=== PATIENT | male | born 1975 | race Caucasian/White ===

== ENCOUNTER 2021-06-16 03:24 | Emergency (ER) | payer OTHER, SELFPAY ==
--- NOTE | ~2021-06-16 | XR_ITS ---
EXAMINATION: XR foot RT min 3V DATE: 06/16/2021 06:20 INDICATION: Right foot injury and pain. TECHNIQUE: 4 views of right foot were obtained. COMPARISON: Right foot radiographs 03/13/2013 FINDINGS: Bone alignment is normal. No fracture. There is mild osteoarthritis of first interphalangea l joint and talonavicular joint. There is an enthesophyte at posterior aspect of calcaneal tuberosity . IMPRESSION: 1. Mild polyarticular osteoarthritis. Reviewed, dictated and finalized at location A. R ANALYST
[2021-06-16 03:26] VITALS: BP 144/94; PULSE 94; RESP 18; TEMP 36.2; O2SAT 100
[2021-06-16 04:48] VITALS: BP 143/73; PULSE 88; RESP 18; TEMP 36.9; O2SAT 95
--- NOTE | 2021-06-16 06:46 | ED.LOWEXIN ---
HPI - Extremity Injury (Lower) General Chief Complaint: Extremity Injury, Lower Stated Complaint: right foot pain Time Seen by Provider: 06/16/21 04:36 Source: patient and RN notes reviewed Mode of arrival: ambulatory Limitations: no limitations History of Present Illness HPI Narrative: This is a 46 year old male who presents for evaluation of right foot pain. He states on Saturday he accidentally stepped wrong. He thinks her hyperextended distal foot. He had only mild discomfort morning. He went to work night and he noticed that pain worsened throughout the night. He also felt like his foot was getting swollen along distal foot and great toe. He has not taken anything for pain. He is describing pain as throbbing. Related Data Allergies Allergy/AdvReac Type Severity Reaction Status Date / Time aspirin Allergy Severe rash Verified 10/06/15 01:03 ampicillin Allergy Mild Verified 10/05/15 22:54 Review of Systems Review of Systems: All systems reviewed & are unremarkable except as noted in HPI and below PMFSH Past Medical History Medical History (Updated 06/16/21 @ 06:55 by Citlalli Dykes MD) Patient denies medical problems Surgical History Surgical History (Updated 06/16/21 @ 06:49 by Citlalli Dykes MD) No pertinent past surgical history Social History Social History (Updated 06/16/21 @ 06:49 by Citlalli Dykes MD) Smoking status: Never smoker Exam Const: General: no acute distress and alert Orientation/consciousness: patient oriented x3 Eyes: EOM: EOMs intact bilaterally Resp: Effort & Inspection: normal respiratory effort Skin: General skin exam: normal color Rashes: no rashes Neuro: General: patient oriented x3, moves all extremities and CN's II-XI intact bilaterally Extrem: Other: right foot- no swelling, no redness, no deformity, no increased warmth, palpable pedal pulses present. possible tenderness at right first mtp Psych: Mental Status: mental status grossly normal Affect: normal affect Course Reevaluation(s) Reevaluation #1: I discussed with patient that xray shows no fracture. I discussed discharge plan and treatment Date: 06/16/21 Time: 06:50 Vital Signs Vital signs: Vital Signs Temperature 97.1 F L 06/16/21 03:26 Pulse Rate 94 06/16/21 03:26 Respiratory Rate 18 06/16/21 03:26 Blood Pressure 144/94 H 06/16/21 03:26 Pulse Oximetry 100 06/16/21 03:26 Temperature 98.4 F 06/16/21 04:48 Pulse Rate 87 06/16/21 07:01 Respiratory Rate 18 06/16/21 07:01 Blood Pressure 127/68 06/16/21 07:01 Pulse Oximetry 98 06/16/21 07:01 MDM - Extremity Injury (Lower) Imaging Data Radiologist's impression: ITS Impressions Foot X-Ray 06/16/21 06:27 IMPRESSION: 1. Mild polyarticular osteoarthritis. Discharge Plan Discharge Clinical Impression: Acute pain of right foot Patient Disposition: Home, Self-Care Condition: Stable Instructions: Antibiotic Form, Foot Sprain (ED) Additional Instructions: Today your xray was negative for fracture. So elevated, ice when possible. Take tylenol for your pain. If pain does not improve within 1 -2 weeks follow up with your primary care provider. Follow-up/Referrals: Zacarias,Sonny Ko MD [Primary Care Provider] - Stand Alone Forms: Work/School Release IP
[2021-06-16 07:01] VITALS: BP 127/68; PULSE 87; RESP 18; O2SAT 98
== END 2021-06-16 07:00 | disposition home or self-care (01) ==
PROVIDERS: Emergency Provider General Practice; PCP Family Medicine
DX: M79.671 Pain in right foot (principal); M19.071 Primary osteoarthritis, right ankle and foot
CPT/HCPCS: 73630; 99283

== ENCOUNTER 2023-01-10 12:17 | Inpatient (IN) | payer OTHER, SELFPAY ==
[2023-01-10] VITALS (7 sets, daily range): BP systolic 119–144; BP diastolic 75–96; PULSE 82–100; RESP 16–18; TEMP 36.3–37.1; O2SAT 97–100; BMI 30.2
--- NOTE | ~2023-01-10 | CT_ITS ---
EXAMINATION: CT abdomen pelvis w con DATE: 01/10/2023 14:03 INDICATION: Lower abdominal pain TECHNIQUE: Computed tomography (CT) of the abdomen and pelvis was performed with 100 mL Omnipaque-350 intravenous contrast. Automated exposure control and iterative reconstruction technique were employe d. The dose-length product was 908.29 mGy-cm. COMPARISON: None FINDINGS: Lung bases are clear. Heart size is normal. No pericardial or pleural effusion. Diffuse hepatic steat osis mild focal sparing along the gallbladder fossa. Gallbladder, spleen, pancreas, bilateral adrenal glands and kidneys are normal. There is asymmetric wall thickening and adjacent inflammatory strandi ng with a few foci of extraluminal gas around the left side of the sigmoid colon likely related to pe rforated diverticulitis. There is also a larger 3.4 x 2.6 x 4.2 cm loculated extraluminal collection of gas within the adjacent sigmoid mesentery. No organized abscess or more remote free intraperitonea l gas. Remainder of the bowels including the appendix are normal. Bladder is normal. No pathologicall y enlarged abdominal or pelvic lymphadenopathy. Mild lumbar dextrocurvature with mild thoracic and mi nimal lumbar spondylosis. Chronic mild L1 compression fracture with 20% left anterior vertebral body height loss. IMPRESSION: 1. Perforated sigmoid diverticulitis 3.4 cm loculated collection of gas in the sigmoid mesentery but no abscess. Reviewed, dictated and finalized at location L.
[2023-01-10 12:57] LABS: Appearance Urine Clear (Clear); Bilirubin Urine Negative (Negative); Blood Urine Negative (Negative); Color Urine Yellow (Yellow); Glucose Urine UA Negative (Negative); Ketones Urine Negative (Negative); Leukocyte Esterase Ur Negative LEU/UL (Negative); Nitrate Urine Negative (Negative); Protein Urine Negative (Negative); Specific Grav Ur 1.008 (1.001-1.035); Urobilinogen Urine 0.2 mg/dL (<2.0); pH Urine 5.5 (5.0-9.0)
[2023-01-10 12:58] LABS: Basophils Absolute Auto 0.1 K/mm3 (0.0-0.1); Basophils Percent Auto 0.7 % (0.2-1.2); Eosinophils Absolute Auto 0.3 K/mm3 (0-0.3); Eosinophils Percent Auto 3.4 % (0-4.4); Hemoglobin 14.2 g/dL (14.0-18.0); Immature Granulocyte Absolute 0.04 K/mm3 (0.00-0.031); Immature Granulocyte Percent A 0.4 % (0-0.5); Lymphocytes Absolute Auto 2.91 K/mm3 (0.9-3.2); Lymphocytes Percent Auto 30.4 % (18.3-44.2); Mean Corpuscular HGB Conc 31.6 g/dl (32-36); Mean Corpuscular Hemoglobin 25.9 pg (26-34); Mean Platelet Volume 9.6 fl (7.4-10.4); Monocytes Absolute Auto 0.6 K/mm3 (0.1-0.6); Monocytes Percent Auto 6.7 % (2.6-8.5); Neutrophils Absolute Auto 5.6 K/mm3 (1.3-6.7); Neutrophils Percent Auto 58.4 % (45.5-73.1); Platelet Count Result 310 k/mm3 (150-375); Red Blood Count 5.49 M/mm3 (4.6-6.20); White Blood Count 9.6 K/mm3 (4.5-10.0)
[2023-01-10 13:00] LABS: Add Urine Microscopic? NO
[2023-01-10] MEDS: SODIUM CHLORIDE 0.9% IV 1,000 ML 999 ML IV CONT (13:06)
[2023-01-10 13:10] LABS: Alanine Aminotransferase 29 U/L (6-50); Albumin Level 4.7 g/dL (3.5-5.1); Alkaline Phosphatase 76 U/L (38-126); Anion Gap 10 mmol/L (8-16); Aspartate Amino Transferase 28 U/L (17-59); Bilirubin,Total 0.6 mg/dL (0.2-1.3); Blood Urea Nitrogen 9 mg/dL (9-20); Calcium 9.5 mg/dL (8.4-10.2); Carbon Dioxide 26 mmol/L (22-30); Chloride 104 mmol/L (98-107); Estimated CRCL calculation 124 ml/min; Estimated Glomerular Filt Rate > 60; Glucose 113 mg/dL (65-110); Lipase 98 U/L (23-300); Potassium 3.6 mmol/L (3.4-5.0); Sodium 140 mmol/L (137-145)
--- NOTE | 2023-01-10 13:26 | ED.RECABL ---
HPI - Recheck/Abnormal Lab/Rx General Chief Complaint: Recheck/Abnormal Lab/Rx Stated Complaint: ABN labs Time Seen by Provider: 01/10/23 12:47 Source: patient, RN notes reviewed and old records reviewed Mode of arrival: ambulatory Limitations: no limitations History of Present Illness HPI narrative: This is a 47 year old male who presents for evaluation of an abnormal CT scan. Patient states he developed lower abdominal pain, nausea, vomiting and constipation 4 weeks ago . HE thought he had a stomach bug but he continued to have lower abdominal. He had nausea, vomiting and lower abdominal pain for first 2 weeks. He was placed on antibiotics and completed those 1.5- 2 weeks ago. HE still had lower abdominal discomfort so he had outpatient CT abdomen and pelvis today. He states this CT was done with oral contrast but no IV contrast. He rates his pain as 3/10. He was told his CT reports possible abnormality to appendix and diverticulitis. Related Data Home Medications Medication Instructions Recorded Confirmed acetaminophen 500 mg tablet 1,000 mg PO Q6H PRN Pain 01/10/23 01/10/23 Allergies Allergy/AdvReac Type Severity Reaction Status Date / Time aspirin Allergy Severe rash Verified 01/10/23 12:23 ampicillin Allergy Mild Unknown Verified 01/10/23 12:23 latex Allergy Rash Verified 01/10/23 17:44 Latex, Natural Rubber Allergy Rash Verified 01/10/23 17:44 Review of Systems Review of Systems: All systems reviewed & are unremarkable except as noted in HPI and below ROS unobtainable: No unobtainable due to mental status Constitutional: Constitutional: Reports fever(s) and Denies weakness Cardiovascular: Cardiovascular: Denies syncope, Denies rapid heart rate, Denies irregular heart rhythm, Denies leg edema and Denies dyspnea Respiratory: Respiratory: Denies chest congestion, Denies hemoptysis, Denies excessive phlegm production and Denies dyspnea Gastrointestinal: Gastrointestinal: Reports abdominal pain, Denies hematochezia, Denies diarrhea, Reports nausea and Reports vomiting Genitourinary: Genitourinary: Denies hematuria, Denies dysuria, Denies penile discharge and Denies testicular pain Musculoskeletal: Musculoskeletal: Denies joint swelling, Denies loss of height and Denies muscle weakness Neurologic: Denies syncope, Denies focal weakness and Denies weakness PMFSH Past Medical History Medical History Patient denies medical problems Surgical History Surgical History No pertinent past surgical history Social History Social History Smoking status: Never smoker Alcohol intake: never Substance use: never Lack of Transportation: No Lack of Food: Never True Current Housing: I Have Housing Concerned About Future Housing: No Difficulty Paying Gas/Electric Bills: No Difficulty Paying for Meds: No Currently Unemployed: No Education: Associate Degree Difficulty w/ Childcare or Family Care: No Spiritual care concerns: No Exam Const: General: no acute distress Nutritional Appearance: well nourished Orientation/consciousness: patient oriented x3 HENMT: Head: normal to inspection Eyes: Pupils: Equal, round and reactive pupils present EOM: EOMs intact bilaterally Chest: Chest palpation & inspection: normal inspection of the chest Resp: Effort & Inspection: normal respiratory effort Auscultation: clear to auscultation bilaterally Cardio: Rate: regular rate Rhythm: regular rhythm Heart sounds: no murmurs GI: GI Palp: Yes Soft to palpation, Yes Tenderness to palpation present (GI) (bilateral lower abdomen), No Guarding due to palpation present (GI) and No Rigid due to palpation Auscultation: normal bowel sounds Neuro: General: patient oriented x3, moves all extremities and CN's II-XI intact bilaterally Extrem: General:
[2023-01-10] MEDS: metroNIDAZOLE 500 MG/ISO 100ML 500 MG/100 ML BAG 100 MG IVPB ×2 (14:43→22:25)
[2023-01-10] MEDS: SODIUM CHLORIDE 0.9% IV 1,000 ML 125 ML IV CONT (16:04)
--- NOTE | 2023-01-10 17:09 | PM.CNGS ---
Assessment and Plan Assessment and plan (1) Diverticulitis of intestine with perforation without abscess or bleeding: Qualifiers: Diverticulitis site: large intestine Qualified Code(s): K57.20 - Diverticulitis of large intestine with perforation and abscess without bleeding Code(s): K57.80 - Diverticulitis of intestine, part unspecified, with perforation and abscess without bleeding Status: Acute Assessment and Plan: Persistent diverticulitis despite outpatient oral antibiotic therapy. No abscess seen but has a 3.4 cm extraluminal collection of air in the mesentery as well as some smaller pockets of free air. Agree with inpatient admission and IV antibiotics with clear liquids and analgesics as needed. Will follow serial exam, labs but hopefully patient will respond to intensive medical therapy. I did explain to him the nature of diverticulitis and that we were treating an intra-abdominal infection caused by diverticular perforation. I also explained that while this does typically respond to antibiotic therapy and limited oral intake, sometimes it does not respond and in fact gets worse. Sometimes surgery is required in the acute inflammatory phase. I explained also that should surgery be required, it often results in a colostomy. This colostomy would require a 2nd operation to restore intestinal continuity. Thank you for asking us to see this patient in consultation. Will follow along with you. History of Present Illness Consult details Consult date: 01/11/23 Reason for consult: abdominal pain Requesting physician: Citlalli Dykes MD Narrative: Patient is a 47-year-old man who has had abdominal pain for about a month. This is primarily in the lower abdomen and was associated with some nausea vomiting and constipation. He was started on ciprofloxacin and Bentyl by his primary care physician after about a week of this and completed a 10 day course of oral antibiotics. The pain, while it has improved, has not gone away. He came to the emergency room today after having an outpatient CT scan of the abdomen pelvis which showed diverticulitis with a few pockets of free intraperitoneal air and a fairly sizable pocket of air in the sigmoid colon mesentery. His white blood cell count is normal and he has not had fever. He is admitted now for IV antibiotic therapy and I was asked to see him in consultation. He has never had a colonoscopy. He has never had diverticulitis prior to this episode. Review of Systems Review of Systems: All systems reviewed & are unremarkable except as noted in HPI and below (HPI and those items noted below) Constitutional: Constitutional: Denies chills and Denies fever(s) Cardiovascular: Cardiovascular: Denies chest pain, Denies diaphoresis, Denies dyspnea and Denies paroxysmal nocturnal dyspnea Respiratory: Respiratory: Denies chest congestion, Denies cough and Denies dyspnea Integumentary/Breasts: Skin/Breast: Denies lesions and Denies rash PMFSH Past Medical History Medical History Patient denies medical problems Surgical History Surgical History (Updated 01/11/23 @ 00:44 by Shelley Johnson NP) H/O arthroscopic knee surgery H/O arthroscopy of shoulder Bilateral Family History Family History (Updated 01/11/23 @ 00:45 by Shelley Johnson NP) Unknown No problems noted. Social History Social History (Updated 01/11/23 @ 00:45 by Shelley Johnson NP) Social History: The patient is single and has never been . He has no children. 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 Lifelong nonsmoker. Denies any alcohol marijuana illicit drugs Code status full code Smoking status: Never smoker Alcohol intake: never Substance use: never Lack of Transportation: No Lack of Food: Never True Current Housing: I Have Housing Concerned About Future Housing: No Difficulty Paying Gas/Electric Bills: No Di
--- NOTE | 2023-01-10 17:10 | PM.IMHP ---
H&P: HPI History of Present Illness Date/Time: 01/10/23 17:10 Chief Complaint: Abnormal CT scan. Narrative: This is a 47-year-old male patient who has no prior medical history. The patient stated that he had lower abdominal pain approximately 4 weeks ago. Patient stated that he had abdominal pain nausea vomiting constipation that started 4 weeks ago. The patient that that he had gastroenteritis and he was prescribed Cipro. The patient stated that he took the medication was feeling much better. Patient stated complete all of his antibiotics approximately 2 weeks ago. The patient was not able to see his primary care doctor because she was on vacation at the time. The patient had an outpatient CT of the abdomen and pelvis today and the patient was stated that it was abnormal when he needed to come to the emergency room. His white count is normal.Abdominal pelvis CT was read as the followingPerforated sigmoid diverticulitis 3.4 cm loculated collection of gas in the sigmoid mesentery but no abscess. Surgery has been consulted. The patient was started on Rocephin and Flagyl. He was given IV fluids. The patient is tolerating clear liquid diet well. The patient being admitted for observation on the date of service of 01/10/2023. Review of Systems Review of Systems: All systems reviewed & are unremarkable except as noted in HPI and below Constitutional: Constitutional: Reports as per HPI and Reports no additional constitutional complaints Eyes: Eyes: Reports as per HPI and Reports no additional eye complaints ENT: Reports system reviewed and no additional complaints, except as documented and Reports Normal hearing present Cardiovascular: Cardiovascular: Reports no additional cardiovascular complaints Respiratory: Respiratory: Reports no additional respiratory complaints and Reports no additional respiratory complaints Gastrointestinal: Gastrointestinal: Reports as per HPI and Reports no additional gastrointestinal complaints Musculoskeletal: Musculoskeletal: Reports no additional musculoskeletal complaints Integumentary/Breasts: Skin/Breast: Reports system reviewed and no additional complaints, except as docu and Reports as per HPI Neurologic: Reports system reviewed and no additional complaints, except as documented, Reports as per HPI and Reports Normal hearing present Psychiatric: Psychiatric: Reports no additional psychiatric complaints and Reports as per HPI Endocrine: Endocrine: Reports no additional endocrine complaints Hematologic/Lymphatic: Hematologic/Lymphatic: Reports no additional hematologic/lymphatic complaints Allergic/Immunologic: Allergic/Immunologic: Reports no additional allergic/immunologic complaints PMFSH Past Medical History Medical History Patient denies medical problems Surgical History Surgical History (Updated 01/11/23 @ 00:44 by Shelley Johnson NP) H/O arthroscopic knee surgery H/O arthroscopy of shoulder Bilateral Family History Family History (Updated 01/11/23 @ 00:45 by Shelley Johnson NP) Unknown No problems noted. Social History Social History (Updated 01/11/23 @ 00:45 by Shelley Johnson NP) Social History: The patient is single and has never been . He has no children. 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 Lifelong nonsmoker. Denies any alcohol marijuana illicit drugs Code status full code Smoking status: Never smoker Alcohol intake: never Substance use: never Lack of Transportation: No Lack of Food: Never True Current Housing: I Have Housing Concerned About Future Housing: No Difficulty Paying Gas/Electric Bills: No Difficulty Paying for Meds: No Currently Unemployed: No Education: Associate Degree Difficulty w/ Childcare or Family Care: No Spiritual care concerns: No Meds Home Medications and Allergies Home Medications Medication Instructions Recorded Confir
[2023-01-11] MEDS: SODIUM CHLORIDE 0.9% IV 1,000 ML 125 ML IV CONT ×3 (01:06→15:22)
[2023-01-11 03:20] LABS: Basophils Absolute Auto 0.1 K/mm3 (0.0-0.1); Basophils Percent Auto 0.5 % (0.2-1.2); Eosinophils Absolute Auto 0.2 K/mm3 (0-0.3); Eosinophils Percent Auto 1.7 % (0-4.4); Hematocrit 41.8 % (42.0-52.0); Hemoglobin 13.3 g/dL (14.0-18.0); Immature Granulocyte Absolute 0.06 K/mm3 (0.00-0.031); Immature Granulocyte Percent A 0.5 % (0-0.5); Lymphocytes Absolute Auto 2.27 K/mm3 (0.9-3.2); Lymphocytes Percent Auto 20.6 % (18.3-44.2); Mean Corpuscular HGB Conc 31.8 g/dl (32-36); Mean Corpuscular Hemoglobin 26.1 pg (26-34); Mean Corpuscular Volume 82.1 fl (80-100); Mean Platelet Volume 9.4 fl (7.4-10.4); Monocytes Absolute Auto 0.7 K/mm3 (0.1-0.6); Monocytes Percent Auto 6.3 % (2.6-8.5); Neutrophils Absolute Auto 7.8 K/mm3 (1.3-6.7); Neutrophils Percent Auto 70.4 % (45.5-73.1); Platelet Count Result 265 k/mm3 (150-375); Red Blood Count 5.09 M/mm3 (4.6-6.20); Red Cell Distribution Width 13.8 % (11.5-14.5)
[2023-01-11 03:40] LABS: Alanine Aminotransferase 25 U/L (6-50); Albumin Level 4.1 g/dL (3.5-5.1); Alkaline Phosphatase 66 U/L (38-126); Anion Gap 9 mmol/L (8-16); Aspartate Amino Transferase 24 U/L (17-59); Bilirubin,Total 0.6 mg/dL (0.2-1.3); Blood Urea Nitrogen 5 mg/dL (9-20); Calcium 9.1 mg/dL (8.4-10.2); Carbon Dioxide 27 mmol/L (22-30); Chloride 103 mmol/L (98-107); Estimated CRCL calculation 138 ml/min; Estimated Glomerular Filt Rate > 60; Glucose 91 mg/dL (65-110); Potassium 3.6 mmol/L (3.4-5.0); Sodium 139 mmol/L (137-145)
[2023-01-11 06:00] VITALS: BP 109/76; PULSE 79; RESP 18; TEMP 36.8; O2SAT 99
[2023-01-11] MEDS: metroNIDAZOLE 500 MG/ISO 100ML 500 MG/100 ML BAG 100 MG IVPB ×3 (08:33→21:23)
[2023-01-11] MEDS: ACETAMINOPHEN 325 MG TABLET 650 MG PO (09:24)
[2023-01-11 09:41] VITALS: O2SAT 95
--- NOTE | 2023-01-11 11:27 | PM.PNGS ---
Progress Note: A&P Assessment and Plan (1) Diverticulitis of intestine with perforation without abscess or bleeding: Qualifiers: Diverticulitis site: large intestine Qualified Code(s): K57.20 - Diverticulitis of large intestine with perforation and abscess without bleeding Code(s): K57.80 - Diverticulitis of intestine, part unspecified, with perforation and abscess without bleeding Status: Acute Assessment and Plan: Still with suprapubic inflammatory mass but feels good in fact pain is probably a little less. He has been up and around and has normal bowel sounds. His white count, has gone from [id number]. Will continue clear liquids and IV antibiotics. Not clearly improved as of yet. I did explain to him that this could be several days of IV antibiotics in the hospital as he has already failed a trial of oral antibiotics as an outpatient. Subjective Subjective Date/Time Seen: 01/11/23 11:27 Patient reports: no new complaints, pain is less (Slightly less. , was not having that much pain even yesterday), tolerating liquids well and afebrile Review of Systems Review of Systems: All systems reviewed & are unremarkable except as noted in HPI and below (HPI and those items noted below) Constitutional: Constitutional: Denies chills and Denies fever(s) Cardiovascular: Cardiovascular: Denies chest pain, Denies diaphoresis, Denies dyspnea and Denies paroxysmal nocturnal dyspnea Respiratory: Respiratory: Denies chest congestion, Denies cough and Denies dyspnea Integumentary/Breasts: Skin/Breast: Denies lesions and Denies rash Exam Const: General: comfortable, no acute distress, alert, awake, Physically active and overweight Orientation/consciousness: patient oriented x3 GI: Inspection: non-distended, obesity and no scars GI Palp: Yes Soft to palpation, Yes Tenderness to palpation present (GI) (Suprapubic inflammatory mass persists), No Guarding due to palpation present (GI), Yes Palpable mass present (Suprapubic inflammatory mass as per yesterday's exam) and No Rebound tenderness present Auscultation: normal bowel sounds (Better bowel sounds today) Neuro: General: patient oriented x3 and no focal motor deficits Extrem: General: no calf tenderness and no edema Psych: Affect: normal affect Insight: Good insight present (Psych) Judgement: Good judgement present (Psych) Objective Data Vital Signs Vital Signs: Vital Signs - 24 hr 01/10/23 12:23 01/10/23 14:41 01/10/23 16:06 Temperature 36.3 C L Pulse Rate 100 88 86 Respiratory Rate 16 17 17 Blood Pressure 144/96 H 119/91 H 120/90 Pulse Oximetry 98 97 98 Oxygen Delivery 01/10/23 16:46 01/10/23 17:52 01/10/23 21:03 Temperature 36.9 C 37.1 C Pulse Rate 84 84 82 Respiratory Rate 18 18 18 Blood Pressure 133/93 H 124/75 Pulse Oximetry 100 100 98 Oxygen Delivery Room Air 01/10/23 20:00 01/11/23 06:00 01/11/23 08:00 Temperature 36.8 C Pulse Rate 82 79 Respiratory Rate 18 18 Blood Pressure 109/76 Pulse Oximetry 98 99 Oxygen Delivery Room Air Room Air 01/11/23 09:41 Temperature Pulse Rate Respiratory Rate Blood Pressure Pulse Oximetry 95 Oxygen Delivery Room Air Intake/Output Intake/Output: Intake & Output 01/08/23 01/09/23 01/10/23 01/11/23 23:59 23:59 23:59 23:59 Intake Total 1150 2560 Balance 1150 2560 Meds/Results Medications: Active Medications Generic Name Dose Route Start Last Admin Trade Name Freq PRN Reason Stop Dose Admin Acetaminophen 650 mg 01/11/23 08:42 01/11/23 09:24 Acetaminophen 325 Mg Tablet PO 650 mg Q6H PRN Administration Mild Pain (1-3) or Fever Ceftriaxone Sodium 1 gm in 50 mls @ 100 mls/hr 01/11/23 14:00 Rocephin 1 Gm/Ns 50 Ml IVPB Q24H EDMUND Metronidazole 500 mg in 100 mls @ 100 mls/hr 01/10/23 22:00 01/11/23 08:33 Flagyl 500 Mg/Iso Soln 100 Ml IVPB 100 mls/hr Q8HR EDMUND Administration Sodium Chloride 1,000 mls @ 125
[2023-01-11 14:00] VITALS: BP 128/88; PULSE 76; RESP 16; TEMP 36.4; O2SAT 98
[2023-01-11 14:05] VITALS: BMI 30.2
--- NOTE | 2023-01-11 14:45 | PM.IMPN ---
Progress Note: A&P Assessment and Plan (1) Diverticulitis of intestine with perforation without abscess or bleeding: Qualifiers: Diverticulitis site: large intestine Qualified Code(s): K57.20 - Diverticulitis of large intestine with perforation and abscess without bleeding Code(s): K57.80 - Diverticulitis of intestine, part unspecified, with perforation and abscess without bleeding Status: Acute Assessment and Plan: Patient had abdominal pain for 4 weeks prior to admission and was treated with ciprofloxacin as an outpatient. Because of persistent pain, he had a CT of the abdomen and pelvis 01/10 showing perforated sigmoid diverticulitis with a 3.4 cm loculated collection of gas in the sigmoid mesentery but no abscess. Patient was admitted and has been started on Rocephin and Flagyl. He is on IV fluids. General surgery has been consulted. Plan is for medical management. He remains on clear liquid diet. Advance diet per General surgery recommendations. Patient will need colonoscopy once this episode has resolved. WBC higher today but will follow for now. Continue IV antibiotics. Continue current analgesics. Appreciate General surgery input. Subjective Date/time seen: 01/11/23 14:45 Interval history: 47yo healthy male here for abdominal pain and found to have acute diverticulitis. Patient feels well. Pain is well controlled and rated as a 3/10. He is passing flatus but no bowel movements. No nausea or vomiting. Tolerating clear liquid diet. This is his 1st episode of diverticulitis. Exam Narrative: AF 97.6 128/88 76 16 98% ra Gen - NARD Chest - CTA bilaterally, nml RR CV - RRR S1/S2 Abd -soft. ND. No guarding. No rebound. No referred pain. He has left lower quadrant pain with minimal guarding. Ext - No pedal edema Neuro - Alert and oriented. Nonfocal exam. Psych - Nml mood and affect Skin - Warm and dry Objective Data Vital Signs Vital Signs: Vital Signs - 24 hr 01/10/23 16:06 01/10/23 16:46 01/10/23 17:52 Temperature 98.5 F Pulse Rate 86 84 84 Respiratory Rate 17 18 18 Blood Pressure 120/90 133/93 H Pulse Oximetry 98 100 100 Oxygen Delivery Room Air 01/10/23 21:03 01/10/23 20:00 01/11/23 06:00 Temperature 98.7 F 98.3 F Pulse Rate 82 82 79 Respiratory Rate 18 18 18 Blood Pressure 124/75 109/76 Pulse Oximetry 98 98 99 Oxygen Delivery Room Air 01/11/23 08:00 01/11/23 09:41 01/11/23 14:00 Temperature 97.6 F Pulse Rate 76 Respiratory Rate 16 Blood Pressure 128/88 Pulse Oximetry 95 98 Oxygen Delivery Room Air Room Air Intake/Output Intake/Output: Intake & Output 01/08/23 01/09/23 01/10/23 01/11/23 23:59 23:59 23:59 23:59 Intake Total 1150 3020 Balance 1150 3020 Meds/Results Medications: Active Medications Generic Name Dose Route Start Last Admin Trade Name Freq PRN Reason Stop Dose Admin Acetaminophen 650 mg 01/11/23 08:42 01/11/23 09:24 Acetaminophen 325 Mg Tablet PO 650 mg Q6H PRN Administration Mild Pain (1-3) or Fever Ceftriaxone Sodium 1 gm in 50 mls @ 100 mls/hr 01/11/23 14:00 01/11/23 13:01 Rocephin 1 Gm/Ns 50 Ml IVPB 100 mls/hr Q24H EDMUND Administration Metronidazole 500 mg in 100 mls @ 100 mls/hr 01/10/23 22:00 01/11/23 09:33 Flagyl 500 Mg/Iso Soln 100 Ml IVPB Infused Q8HR EDMUND Infusion Sodium Chloride 1,000 mls @ 125 mls/hr 01/10/23 14:35 01/11/23 08:32 Normal Saline Iv IV CONT 125 mls/hr .Q8H EDMUND Administration Morphine Sulfate 4 mg 01/10/23 14:33 Morphine Sulfate (*Crx) 4 Mg/Ml Inj IV PUSH Q2H PRN Pain Rated 7-10 Ondansetron HCl 4 mg 01/10/23 14:33 Ondansetron Inj 4 Mg/2 Ml Vial IV PUSH Q4H PRN Nausea Radiology Results: ITS Impressions Abdomen/Pelvis CT 01/10/23 14:06 IMPRESSION: 1. Perforated sigmoid diverticulitis 3.4 cm loculated collection of gas in the sigmoid mesentery but no abscess.
[2023-01-11 20:49] VITALS: BP 112/74; PULSE 94; RESP 20; TEMP 36.6; O2SAT 97
[2023-01-12] MEDS: SODIUM CHLORIDE 0.9% IV 1,000 ML 125 ML IV CONT ×2 (00:23→14:55)
[2023-01-12 05:09] VITALS: BP 124/85; PULSE 72; RESP 20; TEMP 36.8; O2SAT 99
[2023-01-12] MEDS: metroNIDAZOLE 500 MG/ISO 100ML 500 MG/100 ML BAG 100 MG IVPB ×2 (05:53→14:53)
[2023-01-12 06:02] LABS: Basophils Absolute Auto 0.1 K/mm3 (0.0-0.1); Basophils Percent Auto 0.8 % (0.2-1.2); Eosinophils Absolute Auto 0.2 K/mm3 (0-0.3); Eosinophils Percent Auto 2.9 % (0-4.4); Hematocrit 40.3 % (42.0-52.0); Hemoglobin 12.7 g/dL (14.0-18.0); Immature Granulocyte Absolute 0.02 K/mm3 (0.00-0.031); Immature Granulocyte Percent A 0.3 % (0-0.5); Lymphocytes Absolute Auto 2.23 K/mm3 (0.9-3.2); Lymphocytes Percent Auto 27.9 % (18.3-44.2); Mean Corpuscular HGB Conc 31.5 g/dl (32-36); Mean Corpuscular Hemoglobin 25.5 pg (26-34); Mean Corpuscular Volume 80.9 fl (80-100); Mean Platelet Volume 9.7 fl (7.4-10.4); Monocytes Absolute Auto 0.6 K/mm3 (0.1-0.6); Monocytes Percent Auto 7.8 % (2.6-8.5); Neutrophils Absolute Auto 4.8 K/mm3 (1.3-6.7); Neutrophils Percent Auto 60.3 % (45.5-73.1); Platelet Count Result 253 k/mm3 (150-375); Red Blood Count 4.98 M/mm3 (4.6-6.20); Red Cell Distribution Width 13.8 % (11.5-14.5)
[2023-01-12 06:10] LABS: Anion Gap 4 mmol/L (8-16); Blood Urea Nitrogen 3 mg/dL (9-20); Carbon Dioxide 28 mmol/L (22-30); Chloride 103 mmol/L (98-107); Estimated CRCL calculation 138 ml/min; Estimated Glomerular Filt Rate > 60; Glucose 88 mg/dL (65-110); Potassium 3.8 mmol/L (3.4-5.0); Sodium 135 mmol/L (137-145)
--- NOTE | 2023-01-12 10:35 | PM.PNGS ---
Progress Note: A&P Assessment and Plan (1) Diverticulitis of intestine with perforation without abscess or bleeding: Qualifiers: Diverticulitis site: large intestine Qualified Code(s): K57.20 - Diverticulitis of large intestine with perforation and abscess without bleeding Code(s): K57.80 - Diverticulitis of intestine, part unspecified, with perforation and abscess without bleeding Status: Acute Assessment and Plan: exam benign today, WBC normalized, cont abx, will advance to low fiber diet Subjective Subjective Date/Time Seen: 01/12/23 10:35 Interval history: feels good, pain largely resolved Review of Systems Review of Systems: All systems reviewed & are unremarkable except as noted in HPI and below Exam Const: General: cooperative, comfortable and no acute distress Resp: Auscultation: clear to auscultation bilaterally Cardio: Rate: regular rate Rhythm: regular rhythm GI: Inspection: normal to inspection and non-distended GI Palp: No abdominal tenderness, Yes Soft to palpation, No Tenderness to palpation present (GI), No Guarding due to palpation present (GI) and No Rigid due to palpation Objective Data Vital Signs Vital Signs: Vital Signs - 24 hr 01/11/23 14:00 01/11/23 20:49 01/11/23 20:00 Temperature 36.4 C 36.6 C Pulse Rate 76 94 Respiratory Rate 16 20 Blood Pressure 128/88 112/74 Pulse Oximetry 98 97 Oxygen Delivery Room Air 01/12/23 05:09 Temperature 36.8 C Pulse Rate 72 Respiratory Rate 20 Blood Pressure 124/85 Pulse Oximetry 99 Oxygen Delivery Intake/Output Intake/Output: Intake & Output 01/09/23 01/10/23 01/11/23 01/12/23 23:59 23:59 23:59 23:59 Intake Total 1150 5710 100 Output Total 200 Balance 1150 5710 -100 Meds/Results Medications: Active Medications Generic Name Dose Route Start Last Admin Trade Name Freq PRN Reason Stop Dose Admin Acetaminophen 650 mg 01/11/23 08:42 01/11/23 09:24 Acetaminophen 325 Mg Tablet PO 650 mg Q6H PRN Administration Mild Pain (1-3) or Fever Ceftriaxone Sodium 1 gm in 50 mls @ 100 mls/hr 01/11/23 14:00 01/11/23 13:31 Rocephin 1 Gm/Ns 50 Ml IVPB Infused Q24H EDMUND Infusion Metronidazole 500 mg in 100 mls @ 100 mls/hr 01/10/23 22:00 01/12/23 07:00 Flagyl 500 Mg/Iso Soln 100 Ml IVPB Infused Q8HR EDMUND Infusion Sodium Chloride 1,000 mls @ 125 mls/hr 01/10/23 14:35 01/12/23 00:23 Normal Saline Iv IV CONT 125 mls/hr .Q8H EDMUND Administration Morphine Sulfate 4 mg 01/10/23 14:33 Morphine Sulfate (*Crx) 4 Mg/Ml Inj IV PUSH Q2H PRN Pain Rated 7-10 Ondansetron HCl 4 mg 01/10/23 14:33 Ondansetron Inj 4 Mg/2 Ml Vial IV PUSH Q4H PRN Nausea Radiology Results: ITS Impressions Abdomen/Pelvis CT 01/10/23 14:06 IMPRESSION: 1. Perforated sigmoid diverticulitis 3.4 cm loculated collection of gas in the sigmoid mesentery but no abscess. Labs Labs: Laboratory Results - last 24 hr 01/12/23 05:49 WBC 8.0 RBC 4.98 Hgb 12.7 L Hct 40.3 L MCV 80.9 MCH 25.5 L MCHC 31.5 L RDW 13.8 Plt Count 253 MPV 9.7 Immature Gran % (Auto) 0.3 Neut % (Auto) 60.3 Lymph % (Auto) 27.9 [place] % (Auto) 7.8 Eos % (Auto) 2.9 Baso % (Auto) 0.8 Lymph # (Auto) 2.23 [place] # (Auto) 0.6 Eos # (Auto) 0.2 Baso # (Auto) 0.1 Abs Immat Gran (auto) 0.02 Absolute Neuts (auto) 4.8 Absolute Nucleated RBC 0.0 Nucleated RBC % 0.0 Sodium 135 L Potassium 3.8 Chloride 103 Carbon Dioxide 28 Anion Gap 4 L BUN 3 L Creatinine 0.70 Estim Creat Clear Calc 138 Estimated GFR > 60 Glucose 88 Calcium 9.0
--- NOTE | 2023-01-12 13:38 | PC.NURSE ---
Per Dr Vazquez request, I attempted to contact the Dr. Weiss but no one answered. Patient states he feels good and tolerated lunch (low fiber diet) well. I Dr. Vazquez called and made him aware I did not get in contact with the surgeon. Patient to discharge today if okay with surgery.
[2023-01-12 14:00] VITALS: BP 117/71; PULSE 92; RESP 16; TEMP 36.4; O2SAT 99
--- NOTE | 2023-01-12 15:01 | PM.DS ---
DS: Admitting Diagnosis Discharge Date 01/12/23 Admitting Diagnosis Abdominal pain DS: Discharge Diagnosis Discharge Diagnosis (1) Diverticulitis of intestine with perforation without abscess or bleeding: Qualifiers: Diverticulitis site: large intestine Qualified Code(s): K57.20 - Diverticulitis of large intestine with perforation and abscess without bleeding Code(s): K57.80 - Diverticulitis of intestine, part unspecified, with perforation and abscess without bleeding Status: Acute DS: Summary Hospital Course Reason for hospitalization: 47yo healthy male here for abdominal pain and found to have acute diverticulitis. Please see H&P for details Hospital Course: Patient had abdominal pain for 4 weeks prior to admission and was treated with ciprofloxacin as an outpatient.? Because of persistent pain, he had a CT of the abdomen and pelvis 01/10 showing perforated sigmoid diverticulitis with a 3.4 cm loculated collection of gas in the sigmoid mesentery but no abscess.? Patient was admitted and was started on Rocephin and Flagyl.? He was on IV fluids.? General surgery was consulted.? Plan was for medical management.? He was started on a clear liquid diet.?His pain improved. Diet was advanced to a low fiber diet. WBC climbed to 11K before normalizing. Labs otherwise were within normal limits. Patient will need colonoscopy once this episode has resolved.? Patient tolerated the low-fiber diet without issue. Surgery felt patient could be discharged home with close follow-up. Patient overall did well was able be discharged on 01/12. Status at Discharge Cognitive/behavioral status at discharge: Stable Time Spent with Patient Time attestation: Total time spent providing and/or coordinating discharge services: 35 minutes Time spent: Greater than 30 minutes Exam Narrative: AF 97.6 117/71 92 16 99% ra Gen - NARD Chest - CTA bilaterally, nml RR CV - RRR S1/S2 Abd -soft. NTND. +BS Ext - No pedal edema Psych - Nml mood and affect Skin - Warm and dry DS: Data Data Completed and Pending Labs on day of discharge: Labs from last 24 hours 01/12/23 05:49 WBC 8.0 RBC 4.98 Hgb 12.7 L Hct 40.3 L MCV 80.9 MCH 25.5 L MCHC 31.5 L RDW 13.8 Plt Count 253 MPV 9.7 Immature Gran % (Auto) 0.3 Neut % (Auto) 60.3 Lymph % (Auto) 27.9 [place] % (Auto) 7.8 Eos % (Auto) 2.9 Baso % (Auto) 0.8 Lymph # (Auto) 2.23 [place] # (Auto) 0.6 Eos # (Auto) 0.2 Baso # (Auto) 0.1 Abs Immat Gran (auto) 0.02 Absolute Neuts (auto) 4.8 Absolute Nucleated RBC 0.0 Nucleated RBC % 0.0 Sodium 135 L Potassium 3.8 Chloride 103 Carbon Dioxide 28 Anion Gap 4 L BUN 3 L Creatinine 0.70 Estim Creat Clear Calc 138 Estimated GFR > 60 Glucose 88 Calcium 9.0 Preliminary micro results at discharge 01/11/23 03:11 Blood Culture - Preliminary Blood 01/11/23 03:11 Blood Culture - Preliminary Blood Discharge Plan Discharge Attending physician on discharge: Anders Vazquez Consulting providers: Lavell Rose Discharging Clinician: Anders Vazquez Anticipated Discharge Date/Time: 01/12/23 15:16 Patient Disposition: Home, Self-Care Activity: as tolerated Diet: low fiber Discharge Instructions: Please complete your antibiotic course even if you are starting to feel well. Contact your doctor or call 911 and come to the Emergency Room if you have fevers, lightheadedness with standing or other worrisome symptoms. Follow-up with your primary care provider in 1-2 weeks. Please call for appointment. Follow-up with general surgery in 2 weeks. Please call for appointment. Thank you for using [facility] for your health care needs. Patient Instructions: Antibiotic Form Stand Alone Forms: General Discharge Information Follow-up/Referrals: Zacarias,Sonny Ko MD [Primary Care Provider] - Call for Appointment Lavell Rose MD [Physicia
== END 2023-01-12 16:10 | disposition home or self-care (01) | DRG 392 ==
LOC: ANHED 13:19 → ANH3MED 16:03
PROVIDERS: Emergency Medicine; Admitting Provider Family Medicine; Emergency Provider General Practice; PCP Family Medicine; Visit Provider Internal Medicine
DX: K57.20 Diverticulitis of large intestine with perforation and abscess without bleeding (principal)
CPT/HCPCS: 36415; 74177; 80048; 80053; 81003; 83690; 85025; 87040; 96361; 96365; 96366; 96367; 99285; A9270; G0378; J0696; J1836; J7030; Q9967

== ENCOUNTER → 2023-02-01 08:26 | Outpatient (CLI) | payer OTHER, SELFPAY ==
--- NOTE | ~2023-02-01 | CT_ITS ---
EXAMINATION: CT abdomen pelvis w con DATE: 02/01/2023 09:37 INDICATION: Colon diverticulitis with perforation and abscess TECHNIQUE: Computed tomography (CT) of the abdomen and pelvis was performed with 100 CC Omnipaque 350 intravenous contrast. Automated exposure control and iterative reconstruction technique were employe d. Exam dose: 1027.54 mGy-cm total exam DLP. COMPARISON: 01/10/2023 CT abdomen pelvis FINDINGS: The lung bases are clear. Normal heart size. No pericardial or pleural effusion. There is prominent thickening of the wall of the mid sigmoid colon with pericolic abscess currently m easuring approximately 2.9 x 2.4 x 2.8 cm compared to 3.4 x 2.6 x 4.2 cm on 01/10/2023. Normal appendix. Mild colonic diverticulosis. No bowel obstruction is detected. No hepatic, splenic, pancreatic, adrenal or renal space-occupying mass lesion is detected. The gallbl adder is contracted. No gallbladder wall thickening or pericholecystic fluid or fat stranding is note d. No bile duct or pancreatic duct dilatation. No urinary tract calculus or hydroureteronephrosis. The urinary bladder and prostate gland are unrema rkable. Normal caliber of the abdominal aorta. No intraperitoneal or retroperitoneal or pelvic mass lesion or adenopathy or ascites. Small fat-containing umbilical hernia. Probable small fat-containing inguinal hernias. IMPRESSION: Interval mildly diminished size of pericolic abscess at mid sigmoid area Reviewed, dictated and finalized at Location A. Reviewed, dictated and finalized at location B. IMPRESSION: Interval mildly diminished size of pericolic abscess at mid sigmoi d area
== END ==
PROVIDERS: PCP Family Medicine; Visit Provider Surgery
DX: K57.20 Diverticulitis of large intestine with perforation and abscess without bleeding (principal)
CPT/HCPCS: 74177; Q9967

== ENCOUNTER → 2023-03-04 09:41 | Outpatient (CLI) | payer OTHER, SELFPAY ==
--- NOTE | ~2023-03-04 | CT_ITS ---
CT of the Abdomen and Pelvis: Indication: Abdominal Technique: 2.5 mm axial scans were obtained through the abdomen and pelvis following intravenous adm inistration of 100 cc of Omnipaque 350. Dose reduction technique was used on this scan by utilizing a utomated exposure control and iterative reconstruction technique. The dose-length product (DLP) was 1 011.31 mGy-cm. COMPARISON: 01/24/2023 Findings: Scans through the lung bases are unremarkable. There is diffuse fatty infiltration of the liver. The spleen, pancreas, gallbladder, adrenals and kid neys are within normal limits. No evidence of aortic aneurysm. No lymphadenopathy. There is persistent sigmoid diverticulitis with diverticular abscess/contained perforation, measuring 3.4 x 2.5 cm, similar to prior exam. No bowel obstruction. Images through the pelvis were performed. Urinary bladder unremarkable. Prostate gland and seminal ve sicles are unremarkable. No ascites. Impression: Sigmoid diverticulitis with pericolonic abscess/contained perforation, essentially unchanged from mel or exam. Diffuse fatty infiltration of the liver. Reviewed, dictated and finalized at location . Impression: Sigmoid diverticulitis with pericolonic abscess/contained perforation, essentia lly unchanged from prior exam. Diffuse fatty infiltration of the liver.
== END ==
PROVIDERS: PCP Family Medicine; Visit Provider Surgery
DX: R10.2 Pelvic and perineal pain (principal); K57.32 Diverticulitis of large intestine without perforation or abscess without bleeding; K76.0 Fatty (change of) liver, not elsewhere classified
CPT/HCPCS: 74177; Q9967

== ENCOUNTER 2023-03-20 05:35 | Outpatient (CLI) | payer OTHER, SELFPAY ==
[2023-03-18 11:05] VITALS: BMI 30.6
--- NOTE | 2023-03-18 11:06 | PC.NURSE ---
Pre Radiology instructions Report to the outpatient [facility] on date 0900 at time 03/20/23 for procedure Time: 1100. YOU MAY BE MONITORED AT HOSPITAL FOR UP TO 4 HOURS AFTER YOUR PROCEDURE. A visitor will be allowed to accompany the patient into the hospital. You and your visitor will be asked to self-screen and do not enter if you have any COVID symptoms. A mask is OPTIONAL within the hospital. Patients are to have no food or drink 8 hours prior to procedure time Driving will be restricted after the procedure, you must have a person to drive you home. Labs will be drawn in preop area and once reviewed, you will be taken to radiology area for procedure. When the procedure is completed, you will be taken to outpatient where you will be monitored for several hours. You may have one visitor in this area. Other than holding anti-coagulants, patient may take other medication(s) as scheduled. Prior to your appointment date patients are instructed to hold anti-coagulants after discussing with ordering provider to stop. If unable to discontinue anti-coagulants please notify radiologist. ? No aspirin or warfarin (Coumadin) for 7 days prior to the procedure. ? No clopidogrel (Plavix), ticagrelor (Brilinta), prasugrel (Effient) or dabigatran (Pradaxa) for 5 days prior to the procedure. ? No rivaroxaban (Xarelto), apixaban (Eliquis), dipyridamole (Aggrenox or Persantine) or cilostazol (Pletal) for 2 days prior to the procedure. Medications to discontinue per physician: N/A Date to take last dose: N/A Please leave all valuables, including medications, at home the day of procedure. The hospital will not accept responsibility for valuables. Wear comfortable, loose fitting clothing.? Follow any additional instructions given to you from ordering provider. Telephone instructions given to [place] - CHANTELLE KO and asked if any additional questions and then verbalized understanding. Patient advised to call scheduling provider office or registration scheduling [phone] if any additional questions.
--- NOTE | ~2023-03-20 | CT_ITS ---
EXAMINATION: CT guide absc cath placement DATE: 03/20/2023 12:07 INDICATION: Perisigmoid abscess. TECHNIQUE: The procedure including the risks, benefits, and alternatives was discussed with the patie nt. Risks discussed included bleeding and infection. The patient understood the risks and benefits an d agreed to proceed. The patient was confirmed to be receiving appropriate antibiotic coverage. The skin overlying the abdomen was prepped and draped in usual sterile fashion. Anesthetic was administe red with 1% lidocaine subcutaneously. An 18 gauge trochar needle was inserted into the perisigmoid ab scess with CT guidance. The needle was exchanged over a wire for 6 [place], 8 Moldovan, and 9 [place] dil ators and then for an 8.5 [place] pigtail catheter. The catheter was stitched to the skin, and a steri le dressing was applied. The mA was adjusted according to patient size. Iterative reconstruction tech nique was employed. The dose-length product was 332.81 mGy-cm. There were no immediate complications. FINDINGS: CT images demonstrate the catheter within the perisigmoid abscess. 1 mL fluid was aspirated for testing. IMPRESSION: 1. Successful CT-guided perisigmoid abscess drainage. 2. 1 mL opaque, jurado fluid was sent for aerobic and anaerobic cultures. Reviewed, dictated and finalized at location A.
[2023-03-20 09:24] LABS: Mean Platelet Volume 10.1 fl (7.4-10.4); Platelet Count Result 269 k/mm3 (150-375)
[2023-03-20 09:34] LABS: INR 0.9; Prothrombin Time 12.8 Seconds (11.1-14.7)
[2023-03-20 09:47] LABS: Estimated CRCL calculation 110 ml/min; Estimated Glomerular Filt Rate > 60
[2023-03-20 10:39] VITALS: BP 130/75; PULSE 74; RESP 14; TEMP 37.1; O2SAT 100
[2023-03-20] MEDS: CLINDAMYCIN 900 MG/D5W 50 ML 900 MG/50 ML PIGGYBACK 50 MG IVPB (11:07)
[2023-03-20 12:10] VITALS: BP 130/70; PULSE 70; RESP 20
[2023-03-20 12:25] VITALS: BP 137/72; PULSE 78; RESP 20
[2023-03-20 12:40] VITALS: BP 124/70; PULSE 74; RESP 20
[2023-03-20 13:10] VITALS: BP 135/76; PULSE 76; RESP 20
== END 2023-03-20 13:24 | disposition home or self-care (01) ==
PROVIDERS: PCP Family Medicine; Referring Provider Surgery; Visit Provider Radiology Diagnostic Radiology
PROC: (CPT 75989; principal; 2023-03-20 11:00)
DX: K57.80 Diverticulitis of intestine, part unspecified, with perforation and abscess without bleeding (principal)
CPT/HCPCS: 36415; 75989; 85049; 85610; 87070; 87075; 87076; 87077; 87205; C1729; C1769; Q9967

== ENCOUNTER → 2023-04-25 12:15 | Outpatient (CLI) | payer OTHER, SELFPAY ==
--- NOTE | ~2023-04-25 | CT_ITS ---
EXAMINATION: CT abdomen pelvis w con INDICATION: History of diverticulitis with abscess TECHNIQUE: Computed tomographic images of the abdomen and pelvis were obtained after the administrati on of 100 cc of Omnipaque 350 intravenous contrast. The dose-length product (DLP) was 1087.65 mGy-cm. Automated exposure control and iterative reconstruction technique were employed. 15 cc of rectal con trast were also administered. COMPARISON: 02/24/2023 FINDINGS: The lung bases are clear. The heart size is normal. The liver is diffusely low in attenuati on when compared with the spleen, consistent with hepatic steatosis. The spleen, pancreas, gallbladde r, and adrenal glands are normal. The kidneys are unremarkable. A circumaortic left renal vein is not ed. No pathologically enlarged abdominal or pelvic lymph nodes are identified. There is persistent wa ll thickening of the sigmoid colon with an adjacent 4.3 x 3.2 cm perisigmoid abscess with slight incr ease in size. The percutaneous drainage catheter has been removed. There is a loop of small bowel pas sing adjacent to the abscess without definite evidence of fistula formation. The appendix is normal. IMPRESSION: 1. Perisigmoid abscess with slight increase in size. Reviewed, dictated and finalized at location F.
== END ==
PROVIDERS: PCP Family Medicine; Visit Provider Surgery
DX: K57.20 Diverticulitis of large intestine with perforation and abscess without bleeding (principal)
CPT/HCPCS: 74177; Q9967

== ENCOUNTER 2023-06-03 11:35 | Outpatient (CLI) | payer OTHER, SELFPAY ==
--- NOTE | 2023-06-03 12:17 | ECG_ITS ---
Measurements Intervals [place] Rate: 69 P: 37 [place]: 162 QRS: 21 QRSD: 105 T: 50 QT: 361 QTc: 387 Interpretive Statements SINUS RHYTHM BASELINE ARTIFACT- I, II, III, AVR, AVL, AVF NORMAL ECG NO PREVIOUS ECG AVAILABLE FOR COMPARISON Electronically Signed On 06-03-2023 13:05:34 [employer]OR [employer]ICENCE EXAMINER by Daljit Lou D.O.
[2023-06-03 12:50] LABS: Basophils Absolute Auto 0.1 K/mm3 (0.0-0.1); Basophils Percent Auto 0.8 % (0.2-1.2); Eosinophils Absolute Auto 0.4 K/mm3 (0-0.3); Eosinophils Percent Auto 4.7 % (0-4.4); Hematocrit 48.4 % (42.0-52.0); Hemoglobin 14.9 g/dL (14.0-18.0); Immature Granulocyte Absolute 0.03 K/mm3 (0.00-0.031); Immature Granulocyte Percent A 0.4 % (0-0.5); Lymphocytes Absolute Auto 1.94 K/mm3 (0.9-3.2); Lymphocytes Percent Auto 26.2 % (18.3-44.2); Mean Corpuscular HGB Conc 30.8 g/dl (32-36); Mean Corpuscular Hemoglobin 25.4 pg (26-34); Mean Corpuscular Volume 82.5 fl (80-100); Mean Platelet Volume 9.9 fl (7.4-10.4); Monocytes Absolute Auto 0.7 K/mm3 (0.1-0.6); Neutrophils Absolute Auto 4.4 K/mm3 (1.3-6.7); Neutrophils Percent Auto 58.9 % (45.5-73.1); Platelet Count Result 271 k/mm3 (150-375); Red Blood Count 5.87 M/mm3 (4.6-6.20); Red Cell Distribution Width 14.2 % (11.5-14.5); White Blood Count 7.4 K/mm3 (4.5-10.0)
[2023-06-03 12:54] LABS: Appearance Urine Clear (Clear); Bilirubin Urine Negative (Negative); Blood Urine Negative (Negative); Color Urine Yellow (Yellow); Glucose Urine UA Negative (Negative); Ketones Urine Negative (Negative); Leukocyte Esterase Ur Negative LEU/UL (Negative); Nitrate Urine Negative (Negative); Protein Urine Negative (Negative); Specific Grav Ur 1.023 (1.001-1.035); Urobilinogen Urine 0.2 mg/dL (<2.0); pH Urine 5.5 (5.0-9.0)
[2023-06-03 13:01] LABS: INR 0.9; Prothrombin Time 12.9 Seconds (11.1-14.7)
[2023-06-03 13:02] LABS: Partial Thromboplastin Time 30.7 SECONDS (22.3-36.8)
[2023-06-03 13:07] LABS: Add Urine Microscopic? NO
[2023-06-03 13:11] LABS: Anion Gap 13 mmol/L (8-16); Blood Urea Nitrogen 14 mg/dL (9-20); Calcium 9.7 mg/dL (8.4-10.2); Carbon Dioxide 27 mmol/L (22-30); Chloride 99 mmol/L (98-107); Estimated Glomerular Filt Rate > 60; Glucose 95 mg/dL (65-110); Potassium 3.9 mmol/L (3.4-5.0); Sodium 139 mmol/L (137-145)
== END 2023-06-03 11:36 | disposition home or self-care (01) ==
LOC: ANHSURGERY 11:38
PROVIDERS: PCP Family Medicine; Visit Provider Surgery
DX: K57.80 Diverticulitis of intestine, part unspecified, with perforation and abscess without bleeding (principal)
CPT/HCPCS: 36415; 80048; 81003; 85025; 85610; 85730; 86850; 86900; 86901; 93005

== ENCOUNTER 2023-06-12 16:56 | Inpatient (IN) | payer OTHER, SELFPAY ==
--- NOTE | 2023-06-03 12:04 | PC.NURSE ---
Report to the Outpatient Waiting Room, entrance under the green pavilion located off [facility], at time 0830 on date __06/12/23 . Planned Procedure Time: _1030 . Time changes happen often and if your time is changed the preop area will call you the afternoon before. - You and your visitor will be asked to self-screen and do not enter if you have any COVID symptoms. - A mask is optional within the hospital at this time. Patients may have clear liquids (water, carbonated beverages, clear teas, apple juice) until 3 hours prior to surgery with a maximum of 20 ounces. - No food from midnight until time of surgery - Infants may have breast milk until 4 hours before surgery, infant formula 6 hours prior to surgery. - Children will be allowed to drink immediately following surgery. If applicable, please bring a bottle or sippy cup to assist with drinking. Juice, water, soda, and popsicles are readily available. For infants on formula, please bring formula the day of surgery. Pacifiers are allowed. Take the following medications with a SIP of water the morning of surgery: ___NONE DO NOT STOP ANY OF YOUR OTHER PRESCRIPTION MEDICATIONS PRIOR TO SURGERY ?EXCEPT THE FOLLOWING Medications to discontinue per physician NONE ENSURE BUNDLE PACK PER DR CORDON BOWEL PREP PER DR CORDON Please no make-up, nail kenyan, hairspray, perfume, deodorant, or body powder the day of surgery. No jewelry (including any body piercings) or valuables the day of surgery, leave them at home. Please take a shower or bath the night before, or the morning of, surgery with an antibacterial soap. Wear comfortable, loose fitting clothing. Children are encouraged to wear pajamas. - Jewelry must be removed prior to entering the operating room. Rings and piercings that are not removed may be cut off. - The hospital will not accept responsibility for valuables. - Please leave all valuables, including medications, at home the day of surgery. If you are going home after surgery, a licensed bobtail driver must drive you home. - NO public transportation without another adult if you receive anesthesia. - We recommend that an adult stay with you for 24 hours following discharge. - We also recommend that you do not drive, make important decision, drink alcoholic beverages, or take any drugs that were not prescribed by your health care provider for at least 24 hours after your discharge time. For Pediatric surgeries, we recommend two adults accompany the child home. Follow any additional instructions given to you from your surgeon. If you or anyone in your household have experienced Covid symptoms in the past week, please notify your surgeon or the nurse liaison at the phone number below for possible testing. VERBAL AND WRITTEN instructions given to __PATIENT and asked if any additional questions and then verbalized understanding. Patient advised to call surgeon office or pre surgery nurse liaison [phone] if any additional questions.
[2023-06-03 12:25] VITALS: BP 128/87; PULSE 71; RESP 18; TEMP 36.6; O2SAT 98; BMI 30.9
[2023-06-12] VITALS (16 sets, daily range): BP systolic 112–129; BP diastolic 72–89; PULSE 81–100; RESP 14–20; TEMP 36.4–37.2; O2SAT 93–100
--- NOTE | 2023-06-12 07:09 | WPDHPUPDATE1 ---
History and Physical Update Update Date/Time: 06/12/23 07:09 History and Physical has been reviewed, including an updated exam of the patient. There are NO changes in the patient's condition. Risks, benefits, and alternatives have been discussed and questions answered. Patient agrees to proceed with procedure.
--- NOTE | 2023-06-12 07:40 | SUR.PREOP ---
dr souza ordered a fleets enema when pt arrived in pre-op. pt arrived and instructed on how to do. pt was aware as he did one last night too. pt went to bathroom and performed fleets enema and stated he was clear.
[2023-06-12] MEDS: LACTATED RINGERS 1,000 ML 30 ML IV CONT ×2 (08:20→14:55)
[2023-06-12] MEDS: ACETAMINOPHEN 500 MG TABLET 1000 MG PO (08:20)
[2023-06-12] MEDS: ALVIMOPAN 12 MG CAPSULE PO (08:36)
--- NOTE | 2023-06-12 09:25 | WPDANESEPPF ---
Anes - Initial Pre Proc Eval Procedure: Operation Date: 06/12/23 09:30 Proposed Procedures p Hand Assisted Laparoscopic Sigmoidectomy - Lavell Rose MD Date/Time: 06/12/23 09:25 Surgeon: Lavell Rose MD Pre Op Diagnosis: diverticulitis with abscess Patient Data Age: 48 Gender: M Height: 1.83 m Weight: 102.8 kg Last Vital Signs Temp 97.8 F 06/03/23 12:25 Pulse 71 06/03/23 12:25 Resp 18 06/03/23 12:25 BP 128/87 06/03/23 12:25 Pulse Ox 98 06/03/23 12:25 O2 Del Method Room Air 06/03/23 12:25 Allergies Allergy/AdvReac Type Severity Reaction Status Date / Time aspirin Allergy Severe rash Verified 06/12/23 08:37 ampicillin Allergy Mild Unknown Verified 06/12/23 08:37 latex Allergy Rash Verified 06/12/23 08:37 Latex, Natural Rubber Allergy Rash Verified 06/12/23 08:37 Home Medications Medication Instructions Recorded Confirmed Type acetaminophen 500 mg tablet 1,000 mg PO Q6H PRN Pain 01/10/23 06/03/23 History ciprofloxacin HCl 500 mg tablet 500 mg PO .COMPLEX #1 tablet 06/03/23 Rx metronidazole 500 mg tablet 500 mg PO .COMPLEX #3 tabs 06/03/23 Rx Patient hx anesthesia problems: post op nausea/vomiting (scopolamine patch applied) Family hx anesthesia problems: none Results Review: All pre-operative results and documents have been reviewed as part of the pre-operative evaluation. FOR[facility]LY [facility] Past Medical History Medical History Patient denies medical problems Surgical History Surgical History H/O arthroscopic knee surgery H/O arthroscopy of shoulder Bilateral Family History Family History Unknown No problems noted. Social History Social History Social History: The patient is single and has never been . He has no children. 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 Lifelong nonsmoker. Denies any alcohol marijuana illicit drugs Code status full code Smoking status: Never smoker Alcohol intake: never Substance use: never Lack of Transportation: No Lack of Food: Never True Current Housing: I Have Housing Concerned About Future Housing: No Difficulty Paying Gas/Electric Bills: No Difficulty Paying for Meds: No Currently Unemployed: No Education: Associate Degree Difficulty w/ Childcare or Family Care: No Living arrangements: alone Spiritual care concerns: No Anes - Eval Final PreProcedure Day of Procedure 06/12/23 09:25 Patient weight: obese Heart: regular rate and rhythm Lungs: clear to auscultation Airway: Mallampati scale class II Neurological: alert and oriented Last oral intake: >/= 8 hours ASA classification: II Emergent: no Anesthetic plan: proceed Anesthesia type and monitoring: general ETT and standard monitoring Results Review: All pre-operative results and documents have been reviewed as part of the pre-operative evaluation. Informed Consent: The patient's anesthetic plan and its attendant risks and benefits were discussed with the patient/family/POA. Questions were solicited and answers provided to the satisfaction of the patient/family/POA.
[2023-06-12] MEDS: ceFAZolin 2 GM/D5W 50 ML 2 GM/50 ML BAG IVPB (09:37)
[2023-06-12] MEDS: metroNIDAZOLE 500 MG/ISO 100ML 500 MG/100 ML BAG 100 MG IVPB (09:47)
[2023-06-12] MEDS: SCOPOLAMINE 1.5 MG PATCH TRANSDERM (09:49)
[2023-06-12] MEDS: BUPIVACAINE/EPINEPHRINE 0.5% 50 ML VIAL INFILTRATE (12:53)
[2023-06-12] MEDS: ceFAZolin SODIUM 1 GM VIAL IV PUSH (13:47)
--- NOTE | 2023-06-12 15:03 | W.PM.PROC2 ---
Procedure Note - Detailed Date of Procedure 06/12/23 Pre-op Diagnosis diverticulitis with abscess Post-op Diagnosis Same Procedure Performed Hand access laparoscopic sigmoidectomy with takedown splenic flexure and appendectomy Surgeon Lavell Rose MD Band Top Maker Rachele Addison [facility] Anesthesia General and Local (1% lidocaine with epinephrine) Indications Patient is a 48-year-old man who presented with diverticulitis and an abscess. He has been through long process of different treatments of antibiotics as well as percutaneous drainage of the abscess. After percutaneous drainage, the abscess came back. He continues to have an inflammatory mass just below the umbilicus. He has crampy abdominal pain and abdominal discomfort. He is taken to surgery now for hand access laparoscopic sigmoidectomy. Findings Patient had severe chronic inflammation and acute inflammation from his diverticulitis. Left colic gutter near the pelvic brim had extremely dense adhesions particularly where the sigmoid colon and its mesentery were right at the sacral promontory and just above it. The ureter was encased in extremely dense adhesions. I probably spent close to an hour just finding the ureter. There was at least 1 abscess with purulent fluid but I suspect there were more. Number 33 EEA colorectal anastomosis was performed. Description of Procedure Patient was taken to surgery and induced into general anesthesia. He was placed in lithotomy with Omid stirrups. Nugent catheter was placed. Rectal irrigation and rectal tube were placed. Rectal tube was a Nugent catheter with the balloon distended as we had no mallet got catheters that did not contain latex. He was then prepped and draped. An incision was made just below the umbilicus and then farther towards the pubis. The subcutaneous was divided with the cautery. Eventually we came to the midline fascia. The fascia was able to be divided in the midline the length of the wound. The peritoneal cavity was then entered. The GelPort was then placed. A laparotomy sponge was placed in the abdomen and with the hand in the abdomen, I placed the left-sided 10 11 trocar. Local was infiltrated prior to placement of each of the trocars. Local was also infiltrated before the hand access incision had been made. Under direct visualization the left midline 10 11 trocar was placed. Also the right upper abdominal 10 11 trocar was placed. Patient was then placed in Trendelenburg with the left side elevated. Using the LigaSure as well as the cautery attachments to the LigaSure I then began dividing the looser adhesions to the descending colon. These became much more dense as we went lower to the area of the left side of the pelvic brim. Dissection was continued in the descending colon and to the pelvic brim. Eventually we dissected down to the mesentery in the descending colon. This dissection was then carried down to the area of the sacrum. At this point we began a very lengthy difficult search for and eventual identification of the left ureter. The inflammation in the retroperitoneum on the left side was very severe. There was quite a bit of associated bleeding. Eventually I found the ureter on the undersurface of the peritoneum. It was carefully dissected free. I then placed a red vessel loop around the ureter and clipped it to itself so that we could readily identify it in the future. At this point, I anticipated we would need mobilization of the splenic flexure. I divided the descending colon lateral peritoneal attachments. I went up to the splenic flexure and elevated the omentum, I divided the omental attachments to the splenic flexure and mobilized it in this manner. Care was taken not to injure the splenic flexure or descending colon mesentery. We did divide the mesentery to the sigmoid colon just above the aorta preserving the arc of Riolan and the blood supply to the left colon. At this point, it appeared we had ex
[2023-06-12] MEDS: fentaNYL CITRATE INJ (*CRX) 100 MCG/2 ML VIAL 25 MCG IV PUSH ×2 (16:24→16:44)
--- NOTE | 2023-06-12 17:10 | PC.NURSE ---
This patient, Bebeto Sanchez IV, was admitted to [facility] S[facility] Room 332-01. Patient/family oriented to hospital policies and general routines including ID bracelet, bed and alarms, visiting hours, pain management, procedures, bathroom and other care routines, personal items, smoking policy, room service/diet, and visiting hours. Information on how to activate the Rapid Response Team has been discussed. Patient/Family are encouraged to report perceived risks to care and to ask questions if they do not understand what they are told or what they should do.
[2023-06-12] MEDS: LACTATED RINGERS 1,000 ML 125 ML IV CONT (17:54)
[2023-06-12] MEDS: ONDANSETRON INJ 4 MG/2 ML VIAL IV PUSH (18:00)
[2023-06-12] MEDS: MORPHINE SULFATE (*CRX) 4 MG/ML INJ IV PUSH ×2 (18:00→21:42)
[2023-06-12] MEDS: ENOXAPARIN 30 MG/0.3 ML SYRINGE SUB-Q (21:41)
[2023-06-12] MEDS: FAMOTIDINE 20 MG/2 ML VIAL IV PUSH (21:42)
[2023-06-12] MEDS: HYDROcodone/acetaminophen (*CRX) 10-325 MG TABLET 1 TAB PO (23:11)
[2023-06-13] VITALS: BP 114/70; PULSE 92; RESP 16; TEMP 37.2; O2SAT 96
[2023-06-13] MEDS: LACTATED RINGERS 1,000 ML 125 ML IV CONT (02:12)
[2023-06-13] MEDS: MORPHINE SULFATE (*CRX) 2 MG/ML INJ IV PUSH (02:13)
[2023-06-13 04:00] VITALS: BP 112/68; PULSE 89; RESP 14; TEMP 36.9; O2SAT 94
[2023-06-13 06:32] LABS: Hematocrit 39.1 % (42.0-52.0); Hemoglobin 12.4 g/dL (14.0-18.0); Mean Corpuscular HGB Conc 31.7 g/dl (32-36); Mean Corpuscular Hemoglobin 25.8 pg (26-34); Mean Corpuscular Volume 81.5 fl (80-100); Platelet Count Result 293 k/mm3 (150-375); Red Cell Distribution Width 14.2 % (11.5-14.5); White Blood Count 15.6 K/mm3 (4.5-10.0)
[2023-06-13 07:36] LABS: Anion Gap 7 mmol/L (8-16); Blood Urea Nitrogen 9 mg/dL (9-20); Calcium 8.6 mg/dL (8.4-10.2); Carbon Dioxide 28 mmol/L (22-30); Chloride 101 mmol/L (98-107); Estimated CRCL calculation 97 ml/min; Estimated Glomerular Filt Rate > 60; Glucose 116 mg/dL (65-110); Potassium 4.4 mmol/L (3.4-5.0); Sodium 136 mmol/L (137-145)
[2023-06-13 08:00] VITALS: BP 114/75; PULSE 90; RESP 24; TEMP 36.8; O2SAT 95
[2023-06-13] MEDS: LACTATED RINGERS 1,000 ML 80 ML IV CONT (08:49)
[2023-06-13] MEDS: FAMOTIDINE 20 MG/2 ML VIAL IV PUSH ×2 (08:49→20:42)
[2023-06-13] MEDS: ENOXAPARIN 30 MG/0.3 ML SYRINGE SUB-Q ×2 (08:50→20:42)
[2023-06-13 12:00] VITALS: BP 106/65; PULSE 84; RESP 16; TEMP 37.1; O2SAT 95
[2023-06-13] MEDS: HYDROcodone/acetaminophen (*CRX) 10-325 MG TABLET 1 TAB PO ×2 (13:18→20:42)
--- NOTE | 2023-06-13 13:52 | WPDANESPN ---
Anes - Prog Note Post-Op Date/Time: 06/13/23 13:52 Vital Signs: Last Vital Signs Temp 37.1 C 06/13/23 12:00 Pulse 84 06/13/23 12:00 Resp 16 06/13/23 12:00 BP 106/65 06/13/23 12:00 Pulse Ox 95 06/13/23 12:00 O2 Del Method Room Air 06/12/23 18:15 O2 Flow Rate 1 06/12/23 17:25 Pain Score (VAS): 5 I/O: Intake & Output 06/12/23 06/13/23 06/13/23 23:59 07:59 15:59 Intake Total 100 1650 1000 Output Total 1300 1400 Balance 100 350 -400 Laboratory Tests 06/13/23 05:50 06/13/23 05:50 06/13/23 05:50 WBC 15.6 H RBC 4.80 Hgb 12.4 L Hct 39.1 L MCV 81.5 MCH 25.8 L MCHC 31.7 L RDW 14.2 Plt Count 293 MPV 10.0 Sodium 136 L Potassium 4.4 Chloride 101 Carbon Dioxide 28 Anion Gap 7 L BUN 9 D Creatinine 0.90 Estim Creat Clear Calc 97 Estimated GFR > 60 Glucose 116 H Calcium 8.6 Patient Feedback: Patient satisfied with anesthetic care.
--- NOTE | 2023-06-13 14:33 | PM.PNGS ---
Progress Note: A&P Assessment and Plan (1) Diverticulitis of intestine with abscess: Qualifiers: Diverticulitis site: large intestine Diverticulitis bleeding: without bleeding Qualified Code(s): K57.20 - Diverticulitis of large intestine with perforation and abscess without bleeding Code(s): K57.80 - Diverticulitis of intestine, part unspecified, with perforation and abscess without bleeding Status: Acute Assessment and Plan: Postop day 1 and doing well. Awaiting return of bowel function. Will advance to full liquids later today. Remove Nugent catheter. Encouraged increasing activity as tolerated and ambulating in the halls. Repeat labs tomorrow. Plan I have discussed the patient's case and plan of care with Dr. Rose. Subjective Subjective Date/Time Seen: 06/13/23 10:33 Post Op day: 1 (Hand access laparoscopic sigmoidectomy with takedown splenic flexure and appendectomy) Patient reports: no flatus and no bowel movement Interval history: Patient reports expected incisional pain, but reportedly controlled. He is tolerating clear liquids with no nausea or vomiting. No flatus or BM. He has been up to the chair and walked in the halls this morning. He still has his Nugent catheter in place with good urine output. No other complaints at this time. Review of Systems Cardiovascular: Cardiovascular: Reports no additional cardiovascular complaints and Denies chest pain Respiratory: Respiratory: Reports no additional respiratory complaints, Denies cough and Denies dyspnea Gastrointestinal: Gastrointestinal: Reports as per HPI and Reports no additional gastrointestinal complaints Exam Const: General: comfortable and no acute distress Orientation/consciousness: patient oriented x3 Resp: Effort & Inspection: normal respiratory effort Auscultation: clear to auscultation bilaterally Cardio: Rate: regular rate Rhythm: regular rhythm GI: Inspection: non-distended and incision (incisions dry and intact) GI Palp: Yes Soft to palpation, Yes Tenderness to palpation present (GI) (incisional and LLQ) and No Guarding due to palpation present (GI) Auscultation: normal bowel sounds Neuro: General: moves all extremities and no focal motor deficits Extrem: General: no calf tenderness and no edema Psych: Mental Status: mental status grossly normal Insight: Good insight present (Psych) Objective Data Vital Signs Vital Signs: Vital Signs - 24 hr 06/12/23 14:55 06/12/23 15:10 06/12/23 15:25 Temperature 99.0 F Pulse Rate 88 85 100 Respiratory Rate 15 16 20 Blood Pressure 120/75 112/78 126/83 Pulse Oximetry 93 95 98 Oxygen Delivery Simple Face Mask Simple Face Mask Simple Face Mask Oxygen Flow Rate 10 10 10 06/12/23 15:40 06/12/23 15:55 06/12/23 16:10 Temperature Pulse Rate 98 95 96 Respiratory Rate 18 20 18 Blood Pressure 120/74 123/81 121/87 Pulse Oximetry 95 95 98 Oxygen Delivery Nasal Cannula Nasal Cannula Nasal Cannula Oxygen Flow Rate 2 2 2 06/12/23 16:25 06/12/23 16:40 06/12/23 16:55 Temperature Pulse Rate 91 95 92 Respiratory Rate 20 16 14 Blood Pressure 129/89 120/83 122/74 Pulse Oximetry 98 96 97 Oxygen Delivery Nasal Cannula Nasal Cannula Nasal Cannula Oxygen Flow Rate 2 2 2 06/12/23 17:10 06/12/23 17:25 06/12/23 17:55 Temperature 97.6 F 98.3 F 98.5 F Pulse Rate 84 83 81 Respiratory Rate 16 16 16 Blood Pressure 122/72 124/81 120/79 Pulse Oximetry 100 99 Oxygen Delivery Oxygen Flow Rate 06/12/23 17:15 06/12/23 17:25 06/12/23 18:15 Temperature Pulse Rate Respiratory Rate Blood Pressure Pulse Oximetry 100 99 95 Oxygen Delivery Nasal Cannula Nasal Cannula Room Air Oxygen Flow Rate 2 1 06/12/23 18:55 06/12/23 20:00 06/13/23 00:00 Temperature 98.1 F 98.6 F 98.9 F Pulse Rate 90 88 92 Respiratory Rate 16 20 16 Blood Pressure 119/82 122/76 114/70 Pulse Oximetry 95 93 96 Oxygen Delivery Oxygen Flow Rate 06/13/23 04:00 06/13
[2023-06-13 16:00] VITALS: BP 116/78; PULSE 95; RESP 24; TEMP 36.9; O2SAT 96
[2023-06-13] MEDS: ALVIMOPAN 12 MG CAPSULE PO (20:43)
[2023-06-13 21:41] VITALS: BP 140/84; PULSE 108; RESP 16; TEMP 36.7; O2SAT 99
[2023-06-14 01:00] VITALS: BP 113/72; PULSE 103; RESP 18; TEMP 37; O2SAT 93
[2023-06-14 06:31] LABS: Hematocrit 36.3 % (42.0-52.0); Hemoglobin 11.4 g/dL (14.0-18.0); Mean Corpuscular HGB Conc 31.4 g/dl (32-36); Mean Corpuscular Hemoglobin 25.9 pg (26-34); Mean Corpuscular Volume 82.5 fl (80-100); Mean Platelet Volume 10.3 fl (7.4-10.4); Platelet Count Result 229 k/mm3 (150-375); Red Cell Distribution Width 14.5 % (11.5-14.5); White Blood Count 12.1 K/mm3 (4.5-10.0)
[2023-06-14 06:41] LABS: Anion Gap 8 mmol/L (8-16); Blood Urea Nitrogen 9 mg/dL (9-20); Calcium 8.7 mg/dL (8.4-10.2); Carbon Dioxide 27 mmol/L (22-30); Chloride 98 mmol/L (98-107); Estimated CRCL calculation 108 ml/min; Estimated Glomerular Filt Rate > 60; Glucose 94 mg/dL (65-110); Potassium 3.9 mmol/L (3.4-5.0); Sodium 133 mmol/L (137-145)
[2023-06-14] MEDS: ALVIMOPAN 12 MG CAPSULE PO ×2 (08:17→20:27)
[2023-06-14] MEDS: HYDROcodone/acetaminophen (*CRX) 10-325 MG TABLET 1 TAB PO ×2 (08:17→18:16)
[2023-06-14] MEDS: FAMOTIDINE 20 MG/2 ML VIAL IV PUSH (08:18)
[2023-06-14] MEDS: ENOXAPARIN 30 MG/0.3 ML SYRINGE SUB-Q ×2 (08:18→20:27)
[2023-06-14] MEDS: LACTATED RINGERS 1,000 ML 80 ML IV CONT (08:21)
--- NOTE | 2023-06-14 10:04 | PM.PNGS ---
Progress Note: A&P Assessment and Plan (1) Diverticulitis of intestine with abscess: Qualifiers: Diverticulitis site: large intestine Diverticulitis bleeding: without bleeding Qualified Code(s): K57.20 - Diverticulitis of large intestine with perforation and abscess without bleeding Code(s): K57.80 - Diverticulitis of intestine, part unspecified, with perforation and abscess without bleeding Status: Acute Assessment and Plan: Doing well postop day 2. Still pretty painful to get in and out of bed or move in the bed. Tolerating liquids well. Hemoglobin and hematocrit are drifting down, probably a combination of intraoperative losses and dilutional affects. Will give some Bumex today to try to mobilize extracellular fluids. Increase ambulation. Recheck labs and exam again tomorrow. Probably advanced to low-fiber diet later today. Hopefully home this weekend. Subjective Subjective Date/Time Seen: 06/14/23 10:04 Post Op day: 2 Patient reports: still having pain (Still pretty painful trying to get out of bed.), no flatus, no bowel movement and afebrile Interval history: Tolerating liquids well, no nausea or vomiting Exam Const: General: comfortable and no acute distress Orientation/consciousness: patient oriented x3 GI: Inspection: abdominal wall ecchymosis, non-distended and incision (Dry and healing well) GI Palp: Yes Soft to palpation, Yes Tenderness to palpation present (GI) (Mostly lower abdomen around incision), No Guarding due to palpation present (GI) and No Rebound tenderness present Auscultation: Hypoactive bowel sounds present Neuro: General: patient oriented x3 and no focal motor deficits Extrem: General: no calf tenderness and no edema Psych: Affect: normal affect Insight: Good insight present (Psych) Judgement: Good judgement present (Psych) Objective Data Vital Signs Vital Signs: Vital Signs - 24 hr 06/13/23 12:00 06/13/23 16:00 06/13/23 21:41 Temperature 37.1 C 36.9 C 36.7 C Pulse Rate 84 95 108 H Respiratory Rate 16 24 H 16 Blood Pressure 106/65 116/78 140/84 Pulse Oximetry 95 96 99 06/14/23 01:00 Temperature 37.0 C Pulse Rate 103 H Respiratory Rate 18 Blood Pressure 113/72 Pulse Oximetry 93 Intake/Output Intake/Output: Intake & Output 06/11/23 06/12/23 06/13/23 06/14/23 23:59 23:59 23:59 23:59 Intake Total 250 4130 550 Output Total 2900 Balance 250 1230 550 Meds/Results Medications: Active Medications Generic Name Dose Route Start Last Admin Trade Name Freq PRN Reason Stop Dose Admin Acetaminophen 500 mg 06/12/23 16:56 Acetaminophen 500 Mg Tablet PO Q6H PRN Mild Pain (1-3) or Fever Hydrocodone Bitart/Acetaminophen 1 tab 06/12/23 16:56 Hydrocodone/Acetaminophen (*Crx) 5-325 Mg Tablet PO Q4H PRN Pain Rated 4-6 Hydrocodone Bitart/Acetaminophen 1 tab 06/12/23 16:56 06/14/23 08:17 Hydrocodone/Acetaminophen (*Crx) 10-325 Mg Tablet PO 1 tab Q4H PRN Administration Pain Rated 7-10 Alvimopan 12 mg 06/13/23 21:00 06/14/23 08:17 Alvimopan 12 Mg Capsule PO 06/20/23 20:59 12 mg Q12HR EDMUND Administration Bumetanide 2 mg 06/14/23 09:58 Bumetanide Inj 1 Mg/4 Ml Vial IV PUSH 06/14/23 09:59 ONCE ONE Bumetanide 1 mg 06/15/23 09:00 Bumetanide 1 Mg Tablet PO DAILY EDMUND Enoxaparin Sodium 30 mg 06/12/23 21:00 06/14/23 08:18 Enoxaparin 30 Mg/0.3 Ml Syringe SUB-Q 06/14/23 23:59 30 mg Q12HR EDMUND Administration Enoxaparin Sodium 40 mg 06/16/23 09:00 Enoxaparin 40 Mg/0.4 Ml Syringe SUB-Q DAILY EDMUND Famotidine 20 mg 06/14/23 21:00 Famotidine 20 Mg Tablet PO Q12HR EDMUND Morphine Sulfate 2 mg 06/12/23 16:56 06/13/23 02:13 Morphine Sulfate (*Crx) 2 Mg/Ml Inj IV PUSH 2 mg Q2H PRN Administration Pain Rated 4-6 Morphine Sulfate 4 mg 06/12/23 16:56 06/12/23 21:42 Morphine Sulfate (*Crx) 4 Mg/Ml Inj IV PUSH 4 mg Q2H PRN
[2023-06-14] MEDS: BUMETANIDE INJ 1 MG/4 ML VIAL 2 MG IV PUSH (10:21)
[2023-06-14 15:35] VITALS: BP 115/69; PULSE 96; RESP 18; TEMP 36.8; O2SAT 96
[2023-06-14] MEDS: POTASSIUM CHLORIDE 20 MEQ ER TABLET PO (17:05)
[2023-06-14] MEDS: FAMOTIDINE 20 MG TABLET PO (20:27)
[2023-06-14 22:00] VITALS: BP 116/72; PULSE 90; RESP 18; TEMP 36.8; O2SAT 97
[2023-06-15] MEDS: HYDROcodone/acetaminophen (*CRX) 10-325 MG TABLET 1 TAB PO ×2 (04:15→10:21)
[2023-06-15 06:00] VITALS: BP 116/72; PULSE 90; RESP 18; TEMP 36.8; O2SAT 97
[2023-06-15 07:39] LABS: Hematocrit 37.2 % (42.0-52.0); Hemoglobin 11.4 g/dL (14.0-18.0); Mean Corpuscular HGB Conc 30.6 g/dl (32-36); Mean Corpuscular Hemoglobin 25.5 pg (26-34); Mean Corpuscular Volume 83.2 fl (80-100); Mean Platelet Volume 10.5 fl (7.4-10.4); Platelet Count Result 242 k/mm3 (150-375); Red Blood Count 4.47 M/mm3 (4.6-6.20); Red Cell Distribution Width 14.4 % (11.5-14.5); White Blood Count 9.8 K/mm3 (4.5-10.0)
[2023-06-15 07:57] LABS: Anion Gap 8 mmol/L (8-16); Blood Urea Nitrogen 11 mg/dL (9-20); Calcium 8.9 mg/dL (8.4-10.2); Carbon Dioxide 26 mmol/L (22-30); Chloride 100 mmol/L (98-107); Estimated CRCL calculation 122 ml/min; Estimated Glomerular Filt Rate > 60; Glucose 89 mg/dL (65-110); Potassium 3.5 mmol/L (3.4-5.0); Sodium 134 mmol/L (137-145)
[2023-06-15 08:07] VITALS: O2SAT 94
[2023-06-15] MEDS: ALVIMOPAN 12 MG CAPSULE PO ×2 (08:09→20:44)
[2023-06-15] MEDS: FAMOTIDINE 20 MG TABLET PO ×2 (08:09→20:44)
[2023-06-15] MEDS: POTASSIUM CHLORIDE 20 MEQ ER TABLET PO ×2 (08:09→18:12)
[2023-06-15] MEDS: BUMETANIDE 1 MG TABLET PO (08:09)
--- NOTE | 2023-06-15 11:52 | PM.PNGS ---
Progress Note: A&P Assessment and Plan (1) Diverticulitis of intestine with abscess: Qualifiers: Diverticulitis site: large intestine Diverticulitis bleeding: without bleeding Qualified Code(s): K57.20 - Diverticulitis of large intestine with perforation and abscess without bleeding Code(s): K57.80 - Diverticulitis of intestine, part unspecified, with perforation and abscess without bleeding Status: Acute Assessment and Plan: Continue soft diet, gradually increase activity. Possibly home tomorrow. Subjective Subjective Date/Time Seen: 06/15/23 11:52 Interval history: Bowels moving and passing flatus. Tolerating soft diet. Still having some pain. No bloating or nausea. Exam GI: Inspection: incision (intact with glue, mild surrounding erythema) GI Palp: Yes Soft to palpation and Yes Tenderness to palpation present (GI) (incisional) Auscultation: normal bowel sounds Objective Data Vital Signs Vital Signs: Vital Signs - 24 hr 06/14/23 15:35 06/14/23 22:00 06/15/23 06:00 Temperature 36.8 C 36.8 C 36.8 C Pulse Rate 96 90 90 Respiratory Rate 18 18 18 Blood Pressure 115/69 116/72 116/72 Pulse Oximetry 96 97 97 Oxygen Delivery 06/15/23 08:07 06/15/23 08:10 Temperature Pulse Rate Respiratory Rate Blood Pressure Pulse Oximetry 94 Oxygen Delivery Room Air Room Air Intake/Output Intake/Output: Intake & Output 06/12/23 06/13/23 06/14/23 06/15/23 23:59 23:59 23:59 23:59 Intake Total 250 4130 1860 2330 Output Total 2900 Balance 250 1230 1860 2330 Meds/Results Medications: Active Medications Generic Name Dose Route Start Last Admin Trade Name Freq PRN Reason Stop Dose Admin Acetaminophen 500 mg 06/12/23 16:56 Acetaminophen 500 Mg Tablet PO Q6H PRN Mild Pain (1-3) or Fever Hydrocodone Bitart/Acetaminophen 1 tab 06/12/23 16:56 Hydrocodone/Acetaminophen (*Crx) 5-325 Mg Tablet PO Q4H PRN Pain Rated 4-6 Hydrocodone Bitart/Acetaminophen 1 tab 06/12/23 16:56 06/15/23 10:21 Hydrocodone/Acetaminophen (*Crx) 10-325 Mg Tablet PO 1 tab Q4H PRN Administration Pain Rated 7-10 Alvimopan 12 mg 06/13/23 21:00 06/15/23 08:09 Alvimopan 12 Mg Capsule PO 06/20/23 20:59 12 mg Q12HR EDMUND Administration Bumetanide 1 mg 06/15/23 09:00 06/15/23 08:09 Bumetanide 1 Mg Tablet PO 1 mg DAILY EDMUND Administration Enoxaparin Sodium 40 mg 06/16/23 09:00 Enoxaparin 40 Mg/0.4 Ml Syringe SUB-Q DAILY [facility] Famotidine 20 mg 06/14/23 21:00 06/15/23 08:09 Famotidine 20 Mg Tablet PO 20 mg Q12HR [facility] Administration Morphine Sulfate 2 mg 06/12/23 16:56 06/13/23 02:13 Morphine Sulfate (*Crx) 2 Mg/Ml Inj IV PUSH 2 mg Q2H PRN Administration Pain Rated 4-6 Morphine Sulfate 4 mg 06/12/23 16:56 06/12/23 21:42 Morphine Sulfate (*Crx) 4 Mg/Ml Inj IV PUSH 4 mg Q2H PRN Administration Pain Rated 7-10 Naloxone HCl 0.1 mg 06/12/23 16:56 Naloxone Hcl 0.4 Mg/Ml Vial IV PUSH Q2M PRN Opiate Reversal Ondansetron HCl 4 mg 06/12/23 16:56 06/12/23 18:00 Ondansetron Inj 4 Mg/2 Ml Vial IV PUSH 4 mg Q4H PRN Administration Nausea And Vomiting Potassium Chloride 20 meq 06/14/23 17:00 06/15/23 08:09 Potassium Chloride 20 Meq Er Tablet PO 20 meq BIDWM EDMUND Administration Trazodone HCl 50 mg 06/12/23 16:56 Trazodone Hcl 50 Mg Tablet PO HS PRN Insomnia Labs Labs: Laboratory Results - last 24 hr 06/15/23 05:58 WBC 9.8 RBC 4.47 L Hgb 11.4 L Hct 37.2 L MCV 83.2 MCH 25.5 L MCHC 30.6 L RDW 14.4 Plt Count 242 MPV 10.5 H Sodium 134 L Potassium 3.5 Chloride 100 Carbon Dioxide 26 Anion Gap 8 BUN 11 Creatinine 0.70 Estim Creat Clear Calc 122 Estimated GFR > 60 Glucose 89 Calcium 8.9
[2023-06-15 14:00] VITALS: BP 114/70; PULSE 83; RESP 20; TEMP 36.7; O2SAT 98
[2023-06-15] MEDS: ACETAMINOPHEN 500 MG TABLET PO (18:11)
[2023-06-15 22:00] VITALS: BP 110/79; PULSE 81; RESP 16; TEMP 36.4; O2SAT 100
[2023-06-16] MEDS: HYDROcodone/acetaminophen (*CRX) 5-325 MG TABLET 1 TAB PO ×2 (01:37→11:05)
[2023-06-16 06:00] VITALS: BP 112/81; PULSE 79; RESP 16; TEMP 36.3; O2SAT 100
[2023-06-16 07:34] LABS: Hematocrit 38.4 % (42.0-52.0); Hemoglobin 12.1 g/dL (14.0-18.0); Mean Corpuscular HGB Conc 31.5 g/dl (32-36); Mean Corpuscular Hemoglobin 25.5 pg (26-34); Mean Platelet Volume 10.5 fl (7.4-10.4); Platelet Count Result 272 k/mm3 (150-375); Red Blood Count 4.74 M/mm3 (4.6-6.20); Red Cell Distribution Width 14.5 % (11.5-14.5); White Blood Count 8.9 K/mm3 (4.5-10.0)
[2023-06-16 07:58] LABS: Anion Gap 7 mmol/L (8-16); Blood Urea Nitrogen 12 mg/dL (9-20); Calcium 9.1 mg/dL (8.4-10.2); Carbon Dioxide 25 mmol/L (22-30); Chloride 102 mmol/L (98-107); Estimated CRCL calculation 122 ml/min; Estimated Glomerular Filt Rate > 60; Glucose 85 mg/dL (65-110); Potassium 4.2 mmol/L (3.4-5.0); Sodium 134 mmol/L (137-145)
[2023-06-16] MEDS: BUMETANIDE 1 MG TABLET PO (08:48)
[2023-06-16] MEDS: ENOXAPARIN 40 MG/0.4 ML SYRINGE SUB-Q (08:48)
[2023-06-16] MEDS: ALVIMOPAN 12 MG CAPSULE PO (08:48)
[2023-06-16] MEDS: FAMOTIDINE 20 MG TABLET PO (08:48)
[2023-06-16] MEDS: POTASSIUM CHLORIDE 20 MEQ ER TABLET PO (08:48)
--- NOTE | 2023-06-16 11:40 | PM.DS ---
DS: Admitting Diagnosis Discharge Date 06/16/2023 Admitting Diagnosis Diverticulitis large intestine with abscess DS: Discharge Diagnosis Discharge Diagnosis (1) Diverticulitis of intestine with abscess: Qualifiers: Diverticulitis site: large intestine Diverticulitis bleeding: without bleeding Qualified Code(s): K57.20 - Diverticulitis of large intestine with perforation and abscess without bleeding Code(s): K57.80 - Diverticulitis of intestine, part unspecified, with perforation and abscess without bleeding Status: Acute DS: Summary Hospital Course Reason for hospitalization: Diverticulitis with abscess Hospital Course: This is a 48-year-old man who presented with a prior history of diverticulitis with abscess. He has been through antibiotic treatments as well as percutaneous drainage of the abscess. He now presents for hand access laparoscopic sigmoidectomy with takedown of splenic flexure and appendectomy on 06/12/[address] Rose. Surgery was uncomplicated and he was admitted to the surgical floor postoperatively. He was started on a clear liquid diet. On postop day 1 he was advanced to a full liquid diet. He was still experiencing some incisional pain and difficulty with ambulation. On postop day 2 he was continuing to slowly improve and was advanced to a low-fiber diet. He began passing flatus on postop day 2. He then had a bowel movement on postop day 3. His ambulation was slowly improving but he was still experiencing some incisional pain on postop day 3. Postoperative day 4 he was tolerating his diet and ambulating much better. He was discharged on 06/16/2023. Status at Discharge Functional status at discharge: independent ambulation Overall status at discharge: patient is back to baseline Time Spent with Patient Time attestation: Total time spent providing and/or coordinating discharge services: Time spent: Less than 30 minutes Exam Const: General: comfortable, no acute distress and alert Orientation/consciousness: patient oriented x3 Resp: Effort & Inspection: normal respiratory effort Auscultation: clear to auscultation bilaterally Cardio: Rate: regular rate Rhythm: regular rhythm GI: Inspection: non-distended and incision (Intact with glue) GI Palp: Yes Soft to palpation, Yes Tenderness to palpation present (GI) (Incisional) and No Guarding due to palpation present (GI) Auscultation: normal bowel sounds DS: Data Data Completed and Pending Completed studies during hospitalization: Pending at discharge 06/12/23 13:22 Surgical [PTH] Routine Surgical [PTH] Routine Labs on day of discharge: Labs from last 24 hours 06/16/23 06:28 WBC 8.9 RBC 4.74 Hgb 12.1 L Hct 38.4 L MCV 81.0 MCH 25.5 L MCHC 31.5 L RDW 14.5 Plt Count 272 MPV 10.5 H Sodium 134 L Potassium 4.2 Chloride 102 Carbon Dioxide 25 Anion Gap 7 L BUN 12 Creatinine 0.70 Estim Creat Clear Calc 122 Estimated GFR > 60 Glucose 85 Calcium 9.1 Discharge Plan Discharge Attending physician on discharge: Lavell Rose Discharging Clinician: Archie Estrada Patient Disposition: Home, Self-Care Activity: may shower and other - see discharge instructions Diet: low fiber Wound Care Instructions: other - see discharge instructions Discharge Instructions: Remove the Scopolamine patch that was placed behind your ear in 72 hours or less. Wash your hands after touching. Postoperative instructions May ambulate ad [place], okay to take stairs, no lifting greater than 10 lb Okay to shower, no bathing or soaking underwater for [address] in 1 week Continue low-fiber soft diet for 1 week, then may resume regular diet Call office for increasing abdominal pain, fevers, rapid heart rate, or other new symptoms Stand Alone Forms: General Discharge Instructions Follow-up/Referrals: Lavell Rose MD [Physician] - 06/27/23 10:15 am Discharge Medica
== END 2023-06-16 13:06 | disposition home or self-care (01) | DRG 329 ==
LOC: ANH3MEDSUR 17:00
PROVIDERS: Admitting Provider Surgery; PCP Family Medicine; Visit Provider Surgery
PROC: 0D1E4Z4 Bypass Large Intestine to Cutaneous, Percutaneous Endoscopic Approach (ICD-10-PCS; principal; 2023-06-12 09:30)
DX: K57.20 Diverticulitis of large intestine with perforation and abscess without bleeding (principal); K65.1 Peritoneal abscess; K66.0 Peritoneal adhesions (postprocedural) (postinfection)
CPT/HCPCS: 36415; 80048; 85027; 88304; 88307; A9270; C1713; C1729; J0690; J1100; J1170; J1650; J1836; J2250; J2270; J2405; J2704; J3010; J7120

== ENCOUNTER 2024-02-25 01:23 | Day surgery (SDC) | payer OTHER, SELFPAY ==
[2024-02-06 12:22] VITALS: BMI 32.8
[2024-02-25 11:44] VITALS: BP 151/84; PULSE 86; RESP 18; TEMP 36.4; O2SAT 97
[2024-02-25] MEDS: LACTATED RINGERS 1,000 ML 150 ML IV CONT (11:50)
--- NOTE | 2024-02-25 12:04 | WPDANESEPPF ---
Anes - Initial Pre Proc Eval Procedure: Operation Date: 02/25/24 13:30 Proposed Procedures p Colonoscopy - Reza Munguia MD Date/Time: 02/25/24 12:04 Surgeon: Reza Munguia MD Pre Op Diagnosis: Diverticulitis of large intestine w/perforation Patient Data Age: 48 Gender: M Height: 1.8 m Weight: 101 kg Last Vital Signs Temp 97.6 F 02/25/24 11:44 Pulse 86 02/25/24 11:44 Resp 18 02/25/24 11:44 BP 151/84 H 02/25/24 11:44 Pulse Ox 97 02/25/24 11:44 O2 Del Method Room Air 02/25/24 11:44 Allergies Allergy/AdvReac Type Severity Reaction Status Date / Time aspirin Allergy Severe rash Verified 02/25/24 11:41 ampicillin Allergy Mild Unknown Verified 02/25/24 11:41 latex Allergy Rash Verified 02/25/24 11:41 Latex, Natural Rubber Allergy Rash Verified 02/25/24 11:41 NSAIDS (Non-Steroidal Allergy Loss of Verified 02/25/24 11:41 Anti-Inflamma Consciousness Home Medications Medication Instructions Recorded Confirmed Type acetaminophen 500 mg tablet 1,000 mg PO Q6H PRN Pain 01/10/23 02/25/24 History Patient hx anesthesia problems: none Family hx anesthesia problems: none Results Review: All pre-operative results and documents have been reviewed as part of the pre-operative evaluation. [facility] Past Medical History Medical History Patient denies medical problems Surgical History Surgical History H/O arthroscopic knee surgery H/O arthroscopy of shoulder Bilateral S/P laparoscopic-assisted sigmoidectomy Hand access laparoscopic sigmoidectomy with takedown splenic flexure and appendectomy 06/12/23 HAYDEE Family History Family History Unknown No problems noted. Social History Social History Social History: The patient is single and has never been . He has no children. 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 Lifelong nonsmoker. Denies any alcohol marijuana illicit drugs Code status full code Smoking status: Never smoker Alcohol intake: never Substance use: never Do You Feel Safe in your Home?: Yes Lack of Transportation: No Lack of Food: Never True Current Housing: I Have Housing Concerned About Future Housing: Decline to Answer Difficulty Paying Gas/Electric Bills: Decline to Answer Difficulty Paying for Meds: Decline to Answer Currently Unemployed: Decline to Answer Education: High School Diploma/GED Difficulty w/ Childcare or Family Care: Decline to Answer Living arrangements: alone Spiritual care concerns: No Anes - Eval Final PreProcedure Day of Procedure 02/25/24 12:04 Patient weight: obese Heart: regular rate and rhythm Lungs: clear to auscultation Airway: Mallampati scale class II Neurological: alert and oriented Last oral intake: >/= 8 hours ASA classification: II Emergent: no Anesthetic plan: proceed Anesthesia type and monitoring: general GIVS and standard monitoring Results Review: All pre-operative results and documents have been reviewed as part of the pre-operative evaluation. Informed Consent: The patient's anesthetic plan and its attendant risks and benefits were discussed with the patient/family/POA. Questions were solicited and answers provided to the satisfaction of the patient/family/POA.
--- NOTE | 2024-02-25 12:09 | PM.HPGS ---
History of Present Illness History of Present Illness Consent: Risks, benefits, and alternatives have been discussed and questions answered. Patient agrees to proceed with procedure. Chief complaint: Diverticulitis of large intestine w/perforation Narrative: Bebeto Sanchez IV is a 48 year old male with diverticulitis that required partial colon resection, this is first colonoscopy Review of Systems Review of Systems: All systems reviewed & are unremarkable except as noted in HPI and below PMFSH Past Medical History Medical History (Updated 02/25/24 @ 12:12 by Reza Munguia MD) History of diverticulitis of colon Patient denies medical problems Surgical History Surgical History H/O arthroscopic knee surgery H/O arthroscopy of shoulder Bilateral S/P laparoscopic-assisted sigmoidectomy Hand access laparoscopic sigmoidectomy with takedown splenic flexure and appendectomy 06/12/23 HAYDEE Family History Family History Unknown No problems noted. Social History Social History Social History: The patient is single and has never been . He has no children. 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 Lifelong nonsmoker. Denies any alcohol marijuana illicit drugs Code status full code Smoking status: Never smoker Alcohol intake: never Substance use: never Do You Feel Safe in your Home?: Yes Lack of Transportation: No Lack of Food: Never True Current Housing: I Have Housing Concerned About Future Housing: Decline to Answer Difficulty Paying Gas/Electric Bills: Decline to Answer Difficulty Paying for Meds: Decline to Answer Currently Unemployed: Decline to Answer Education: High School Diploma/GED Difficulty w/ Childcare or Family Care: Decline to Answer Living arrangements: alone Spiritual care concerns: No Meds Home Medications and Allergies Home Medications Medication Instructions Recorded Confirmed Type acetaminophen 500 mg tablet 1,000 mg PO Q6H PRN Pain 01/10/23 02/25/24 History Allergies Allergy/AdvReac Type Severity Reaction Status Date / Time aspirin Allergy Severe rash Verified 02/25/24 11:41 ampicillin Allergy Mild Unknown Verified 02/25/24 11:41 latex Allergy Rash Verified 02/25/24 11:41 Latex, Natural Rubber Allergy Rash Verified 02/25/24 11:41 NSAIDS (Non-Steroidal Allergy Loss of Verified 02/25/24 11:41 Anti-Inflamma Consciousness Vital Signs Vital Signs - 24 hr 02/25/24 11:44 Temperature 97.6 F Pulse Rate 86 Respiratory Rate 18 Blood Pressure 151/84 H Pulse Oximetry 97 Oxygen Delivery Room Air Exam Const: General: comfortable and no acute distress HENMT: Face/Nose/Sinus: Normal nares present Eyes: General: appearance normal, both eyes and all related structures Neck: Neck: no JVD Resp: Auscultation: clear to auscultation bilaterally Cardio: Rate: regular rate Rhythm: regular rhythm GI: Inspection: non-distended GI Palp: Yes Soft to palpation Skin: General skin exam: normal color Neuro: General: gait normal Speech: normal speech Extrem: General: normal to inspection Psych: Mental Status: mental status grossly normal Assessment and Plan Assessment and plan (1) History of diverticulitis of colon: Code(s): Z87.19 - Personal history of other diseases of the digestive system Status: Acute Assessment and Plan: colonoscopy
[2024-02-25 12:31] VITALS: BP 100/64; PULSE 74; RESP 20; O2SAT 95
[2024-02-25 12:41] VITALS: BP 99/64; PULSE 76; RESP 16; O2SAT 95
[2024-02-25 12:51] VITALS: BP 101/64; PULSE 74; RESP 16; O2SAT 95
== END 2024-02-25 13:09 | disposition home or self-care (01) ==
PROVIDERS: PCP Emergency Medicine; Referring Provider Surgery; Visit Provider Internal Medicine Gastroenterology
PROC: 0DJD8ZZ Inspection of Lower Intestinal Tract, Via Natural or Artificial Opening Endoscopic (ICD-10-PCS; CPT 45378; principal; 2024-02-25 13:30)
DX: K64.8 Other hemorrhoids (principal); E66.9 Obesity, unspecified; Z68.31 Body mass index [BMI] 31.0-31.9, adult; Z98.890 Other specified postprocedural states; Z90.49 Acquired absence of other specified parts of digestive tract; Z98.0 Intestinal bypass and anastomosis status
CPT/HCPCS: 45378; J2704; J7120

== ENCOUNTER 2025-05-21 11:31 | Outpatient (CLI) | payer OTHER, SELFPAY ==
[2025-05-21 13:03] LABS: Hematocrit 47.2 % (42.0-52.0); Hemoglobin 15.3 g/dL (14.0-18.0); Immature Granulocyte Percent A 0.3 % (0-0.5); Lymphocytes Absolute Auto 2.94 K/mm3 (0.9-3.2); Mean Corpuscular HGB Conc 32.4 g/dl (32-36); Mean Corpuscular Hemoglobin 26.5 pg (26-34); Mean Corpuscular Volume 81.7 fl (80-100); Nucleated Red Blood Cells Absolute Auto 0.000 K/mm3 (0.0-0.012); Nucleated Red Blood Cells Perc 0.0 % (0.0-0.2); Platelet Count Result 237 k/mm3 (150-375); Red Blood Count 5.78 M/mm3 (4.6-6.20); White Blood Count 9.0 K/mm3 (4.5-10.0)
--- OUTSIDE RECORDS SUMMARY | 2025-05-21 16:42 | XMS_ITS | Clinical Summary ---
Author Organization [facility] Address [address] [place] [id number] Care Team Providers Care Chemical Tank Worker Name Role Phone Unavailable Primary Care Provider Unavailabl e Social History Tobacco Use Types Packs/Day Years Used Date Smoking Tobacco: Never Assessed Sex and Gender Information Value Date Recorded Sex Assigned at Not on file Legal Sex Male 6:26 PM CDT Gender Identity Not on file Sexual Orientation Not on file Plan of Treatment Health Maintenance Due Date Last Done Comments Colorectal Cancer Screening Colonoscopy (10 Years) 1975 Annual Physical 1978 Hepatitis C 1993 DTaP, Tdap and Td Vaccines ( 1 - Tdap) 1994 Hepatitis B Vaccines (1 of 3 - 19+ 3-dose series) 1994 COVID-19 Vaccine ( - 2024-2 6 season) 2025 Influenza Adult (#1) 2025 Hepatitis A Vaccines Aged Out No long er eligible based on patient's age to complete this topic Meningococcal B Vaccine Aged Out No l onger eligible based on patient's age to complete this topic Meningococcal Vaccine Aged Out No bret brionna eligible based on patient's age to complete this topic Pneumococcal Vaccine: Pediat rics (0 to 5 Years) and At-Risk Patients (6 to 49 Years) Aged Out No longer eligible b ased on patient's age to complete this topic RSV Immunizations Under 20 Months Aged Out No longer eligible based on patient's age to complete this topic
== END 2025-05-21 11:32 | disposition home or self-care (01) ==
LOC: ANHSURGERY 11:46
PROVIDERS: PCP Emergency Medicine; Visit Provider Surgery
DX: K60.1 Chronic anal fissure (principal)
CPT/HCPCS: 36415; 85025

== ENCOUNTER 2025-05-26 01:18 | Day surgery (SDC) | payer OTHER, SELFPAY ==
[2025-05-19 09:56] VITALS: BMI 33.5
--- NOTE | 2025-05-19 10:06 | PC.NURSE ---
[facility] has started construction of its new state of the art ER which will open Spring 2026. With this, we anticipate parking may be a challenge for some our surgical patients and families. Parking spaces are limited but are available for all Surgical, obstetrics, and ER patients sharing this lot. If you arrive and find you are having a hard time finding a parking space, please note that we understand the challenges, please drive around the hospital and park near Hospital Entrance 1. When you enter this entrance, you can ask a volunteer to direct or take you back to the surgical waiting area to check in. We appreciate everyone?s understanding of these expected challenges while we build for your future. Report to the Outpatient Waiting Room, entrance under the green pavilion located off [address], at time _1100_ on date _[phone]_. Planned Procedure Time: _1pm_.? Time changes happen often and if your time is changed the preop area will call you the afternoon before. - You and your visitor will be asked to self-screen and do not enter if you have any COVID symptoms. Please call surgeon if you need to reschedule. - A mask is optional within the hospital at this time. Clear liquid diet day before surgery. Patients may have clear liquids (water, carbonated beverages, clear teas, apple juice) until 3 hours prior to surgery with a maximum of 20 ounces. (This is what office instructions say) - No food from midnight until time of surgery and no smoking, or chewing tobacco (or any form of nicotine). No chewing gum, candy or mints. Dulcolax 5mg 2 tabs Saturday night and again Saturday. Fleets enema Saturday and again Saturday morning. Take only the following medications with a SIP of water on the morning of surgery: ___None___ DO NOT STOP ANY OF YOUR OTHER PRESCRIPTION MEDICATIONS PRIOR TO SURGERY EXCEPT THE FOLLOWING Hold all vitamins and supplements for 3 days per anesthesiologist. Medications to discontinue per physician Date to take last dose Please no make-up, nail arabic, hairspray, perfume, deodorant, or body powder the day of surgery.? No jewelry (including any body piercings) or valuables the day of surgery, leave them at home.? Please take a shower or bath the night before, or the morning of, surgery with an antibacterial soap.? Wear comfortable, loose fitting clothing.? - Jewelry must be removed prior to entering the operating room.? Rings and piercings that are not removed may be cut off. - The hospital will not accept responsibility for valuables.? - Please leave all valuables, including medications, at home the day of surgery. If you are going home after surgery, a licensed delivery truck driver heavy must drive you home.? - NO public transportation without another adult if you receive anesthesia. - We recommend that an adult stay with you for 24 hours following discharge. - We also recommend that you do not drive, make important decision, drink alcoholic beverages, or take any drugs that were not prescribed by your health care provider for at least 24 hours after your discharge time. Follow any additional instructions given to you from your surgeon. Telephone instructions given to _Bo__and asked if any additional questions and then verbalized understanding. Patient advised to call surgeon office or pre surgery nurse liaison [phone] if any additional questions.
--- NOTE | 2025-05-25 15:13 | PM.SD2 ---
Same Day Admit/Disch: HPI History of Present Illness Chief complaint: Chronic Anal Fissure Narrative: Bebeto Sanchez IV is a 50 year old male who had a sigmoidectomy for diverticulitis in June of 2023. In December of 2024, he returned to the office with rectal pain on bowel movement. Exam showed a posterior midline anal fissure. This was treated with smooth muscle relaxant its psyllium, and mineral oil. It will temporarily improved but then comes back. He is taken to surgery now for lateral internal sphincterotomy for chronic anal fissure. [facility] Past Medical History Medical History History of diverticulitis of colon Patient denies medical problems Surgical History Surgical History S/P laparoscopic-assisted sigmoidectomy Hand access laparoscopic sigmoidectomy with takedown splenic flexure and appendectomy 06/12/23 HAYDEE H/O arthroscopic knee surgery H/O arthroscopy of shoulder Bilateral Family History Family History Unknown No problems noted. Social History Social History Social History: The patient is single and has never been . He has no children. 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 Lifelong nonsmoker. Denies any alcohol marijuana illicit drugs Code status full code Smoking status: Never smoker Alcohol intake: never Substance use: never Do You Feel Safe in your Home?: Yes Lack of Transportation: No Lack of Food: Never True Current Housing: I Have Housing Concerned About Future Housing: No Difficulty Paying Gas/Electric Bills: No Difficulty Paying for Meds: No Currently Unemployed: No Education: High School Diploma/GED Difficulty w/ Childcare or Family Care: No Living arrangements: with family Spiritual care concerns: No Same Day Admit/Disch: Med Pre-admit Medications Home Medications ?Medication ?Instructions ?Recorded ?Confirmed ?Type ketoconazole 2 % topical cream 1 applic topical DAILY 05/19/25 05/19/25 History oxycodone-acetaminophen 5 mg-325 0.5 - 1 tablet PO Q4H PRN pain #10 05/26/25 Rx mg tablet (Percocet) tabs Review of Systems Review of Systems All systems reviewed & are unremarkable except as noted in HPI and below (HPI) Exam Const: General: comfortable, no acute distress, alert and awake HENMT: Head: normocephalic and atraumatic Mouth: Yes Normal oral and palatal mucosa present Eyes: Conjunctivae: conjunctivae normal Pupils: Equal, round and reactive pupils present EOM: EOMs intact bilaterally Neck: Neck: normal visual inspection, no lymphadenopathy and nontender Resp: Effort & Inspection: normal respiratory effort Auscultation: clear to auscultation bilaterally Cardio: Rate: regular rate Rhythm: regular rhythm Heart sounds: no gallops, no murmurs and no rubs GI: Inspection: non-distended GI Palp: Yes Soft to palpation, No Tenderness to palpation present (GI), No Hepatomegaly present and No Splenomegaly present Rectal Exam: abnormal sphincter tone increased and Anal fissure(s) present (Posterior midline) Skin: Lesions: no lesions Rashes: no rashes Neuro: General: no focal motor deficits and CN's II-XI intact bilaterally Cranial nerves: Yes Equal, round and reactive pupils present, Yes Bilaterally intact EOM present, Yes facial symmetry and Yes Midline tongue present Speech: normal speech Motor exam (neuro): 5/5 motor strength present throughout and Motor abnormalities not present Extrem: General: no clubbing, cyanosis or edema and edema Psych: Affect: normal affect Thought process: Normal thought process present Insight: Good insight present (Psych) DS: Summary Time Spent with Patient Time attestation: Total time spent providing and/or coordinating discharge services: DS: Admitting Diagnosis Discharge Date 05/26/2025 Admitting Diagnosis Chronic anal fissure-failed medical treatment. Taken to surgery at this time for lateral internal sphincterotomy. The procedure, risks, benefits and recovery have been discussed. All questions were answered. He wishes to proceed. DS: Discharge Diagnosis Discharge Diagnosis (1) Chronic anal fissure: Code(s): K60.1 - Chronic anal fissure Status: Chronic Assessment and Plan: Left lateral internal sphincterotomy performed by Dr. Rose Discharge Plan Discharge Patient Disposition: Home Discharge Instructions: Discharge Instructions for Anorectal Surgery Dr. Rose 1. May discharge from Outpatient Surgery area or Surgical Floor when stable per protocol. 2. Activity: Remove dressing and start Sitz baths in a.m. following surgery. Once at home, all patients should take 10-20 minute Sitz baths at least two times per day and as needed after each bowel movement. Rest around the house for the next 1-2 days, taking frequent walks. No driving for 2 days or while taking narcotic pain medications. 3. Diet: Regular diet with 6-8 glasses of water per day. Eat plenty of fruits and vegetables. 4. Medications: ? Resume all home medications. ? Metamucil 1 tablespoon PO twice a day ? Mineral Oil 1 tablespoon PO twice a day ? Percocet 5/325 0.5 PO q 4 hours as needed for moderate pain. ? Percocet 5/325 1 PO q 6 hours as needed for severe pain. ? Toradol 10 mg PO q 6 hours as needed for moderate pain. ? Acetaminophen 650 mg PO q 6 hours as needed for mild pain. ? Tucks cream pads to perianal skin after each Sitz bath. Prescriptions for the above medications will be provided at the time of discharge or they can be bought [id number]. 5. Follow-up: call office for appointment in 10-14 days or as previously scheduled. 6. Call office if: ? Sudden increase in pain, swelling or incisional drainage or bleeding occurs. ? Fever > 101 degrees F. ? Nausea and vomiting occur. ? Inability to urinate. 7. Keep a dry 4x4 gauze over rectum at all times except during sitz bath or shower. Replace as needed. May discontinue when all rectal drainage has stopped. 8. Discontinue Nifedipine cream. Patient Language: East Timorese Stand Alone Forms: General Discharge Instructions Follow-up/Referrals: Lavell Rose MD [Physician, General Surgery] - 3 Weeks Discharge Medications: New oxycodone-acetaminophen [Percocet] 5-325 mg tablet 0.5 - 1 tablet PO Q4H PRN (Reason: pain) Qty: 10 0RF Continued ketoconazole 2 % cream 1 applic TOPICAL DAILY Discontinued acetaminophen 500 mg Tablet 1,000 mg PO Q6H PRN (Reason: Pain)
[2025-05-26] VITALS (10 sets, daily range): BP systolic 116–142; BP diastolic 71–98; PULSE 78–101; RESP 13–19; TEMP 36.1–36.6; O2SAT 94–100; BMI 32.7
--- OUTSIDE RECORDS SUMMARY | 2025-05-26 05:30 | XMS_ITS | Clinical Summary ---
Author Organization [facility] Address [address] [place] [address] Care Team Providers Care Women Specialist Name Role Phone Unavailable Primary Care Provider [...]
[2025-05-26] MEDS: LACTATED RINGERS 1,000 ML 30 ML IV CONT (11:40)
[2025-05-26] MEDS: ACETAMINOPHEN 500 MG TABLET 1000 MG PO (11:42)
--- NOTE | 2025-05-26 11:54 | P.PNAN_ITS ---
Anes - Initial Pre Proc Eval Procedure: Operation Date: 05/26/25 13:00 Proposed Procedures p Lateral Internal Sphincterotomy - Lavell Rose MD Date/Time: 05/26/25 11:54 Surgeon: Lavell Rose MD Pre Op Diagnosis: Chronic Anal Fissure Patient Data Age: 50 Gender: M Height: 1.8 m Weight: 106.5 kg Last Vital Signs Temp 97.9 F 05/26/25 11:39 Pulse 92 05/26/25 11:39 BP 138/98 H 05/26/25 11:39 Pulse Ox 98 05/26/25 11:39 O2 Del Method Room Air 05/26/25 11:39 Allergies Allergy/AdvReac Type Severity Reaction Status Date / Time aspirin Allergy Severe rash Verified 05/19/25 09:54 ampicillin Allergy Mild Unknown Verified 05/19/25 09:54 latex Allergy Rash Verified 05/19/25 09:54 Latex, Natural Rubber Allergy Rash Verified 05/19/25 09:54 NSAIDS (Non-Steroidal Allergy Loss of Verified 05/19/25 09:54 Anti-Inflamma Consciousness Home Medications ?Medication ?Instructions ?Recorded ?Confirmed ?Type acetaminophen 500 mg tablet 1,000 mg PO Q6H PRN Pain 0 01/10/23 05/19/25 History ketoconazole 2 % topical cream 1 applic topical DAILY 05/19/25 05/19/25 History Patient hx anesthesia problems: post op nausea/vomiting Family hx anesthesia problems: none Results Review: All pre-operative results and documents have been reviewed as part of the pre- operative evaluation. [facility] Past Medical History Medical History History of diverticulitis of colon Patient denies medical problems Surgical History Surgical History S/P laparoscopic-assisted sigmoidectomy Hand access laparoscopic sigmoidectomy with takedown splenic flexure and appendectomy 06/12/23 HAYDEE H/O arthroscopic knee surgery H/O arthroscopy of shoulder Bilateral Family History Family History Unknown No problems noted. Social History Social History Social History: The patient is single and has never been . He has no children. 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 Lifelong nonsmoker. Denies any alcohol marijuana illicit drugs Code status full code Smoking status: Never smoker Alcohol intake: never Substance use: never Do You Feel Safe in your Home?: Yes Lack of Transportation: No Lack of Food: Never True Current Housing: I Have Housing Concerned About Future Housing: No Difficulty Paying Gas/Electric Bills: No Difficulty Paying for Meds: No Currently Unemployed: No Education: High School Diploma/GED Difficulty w/ Childcare or Family Care: No Living arrangements: with family Spiritual care concerns: No Anes - Eval Final PreProcedure Day of Procedure 05/26/25 11:54 Patient weight: obese Heart: regular rate and rhythm Lungs: clear to auscultation Airway: Mallampati scale class II Neurological: alert and oriented Last oral intake: >/= 8 hours ASA classification: II Emergent: no Anesthetic plan: proceed Anesthesia type and monitoring: general ETT and standard monitoring Results Review: All pre-operative results and documents have been reviewed as part of the pre- operative evaluation. Informed Consent: The patient's anesthetic plan and its attendant risks and benefits were discussed with the patient/family/POA. Questions were solicited and answers provided to the satisfaction of the patient/family/POA.
--- NOTE | 2025-05-26 11:56 | WPDHPUPDATE1 ---
History and Physical Update Update Date/Time: 05/26/25 11:56 History and Physical has been reviewed, including an updated exam of the patient. There are NO changes in the patient's condition. Risks, benefits, and alternatives have been discussed and questions answered. Patient agrees to proceed with procedure.
[2025-05-26] MEDS: ceFAZolin 2 GM in SODIUM CHLORIDE 0.9% IV 50 ML 100 ML IVPB (12:05)
[2025-05-26] MEDS: BUPIVACAINE/EPINEPHRINE 0.5% 50 ML VIAL 30 ML INFILTRATE (12:34)
--- NOTE | 2025-05-26 12:53 | W.PM.PROC2 ---
Procedure Note - Detailed Date of Procedure 05/26/25 Pre-op Diagnosis Chronic Anal Fissure Post-op Diagnosis Same Procedure Performed Left lateral anal sphincterotomy Surgeon Lavell Rose MD Experimental Mechanic Rachele Addison [facility] Anesthesia General and Local Indications Patient has had a posterior midline fissure for several months. We have tried psyllium products, mineral oil, and smooth muscle relaxants. It temporarily improves but then gets worse again. He is taken to surgery now for lateral internal sphincterotomy Findings Well-defined posterior midline chronic anal fissure Description of Procedure Patient was taken to surgery and induced into general anesthesia. He was then turned and placed in prone shawn-knife position. The buttocks were taped apart. Prep and drape was carried out. Digital rectal exam was performed. Hill-Whitney anoscope was introduced. There were no internal suspicious lesions by digital exam or using the anoscope. The posterior midline fissure was easily seen. I then placed local anesthetic with 20 cc deep subdermal, 20 cc interest sphincteric circumferentially around the anus. A medium Hill-Whitney anoscope was then placed on the right side of the rectum. I was able to easily palpate the lower 3rd of the internal sphincter muscle. A small incision was made over the internal sphincter. I then elevated the internal sphincter muscle over a curved clamp. Using the cautery, I divided the internal sphincter muscle. There was no bleeding associated with this. A large Hill-Whitney anoscope was able to be introduced into the rectum without resistance. All looked good. We dressed the rectum was Xeroform gauze, fluffs, Medipore tape. Patient was then returned to a supine position, awakened and extubated. He then transferred to recovery in good condition. Estimated Blood Loss -5 Drains No Packing No Pathology None sent Complications None Condition Stable Disposition PACU [facility] Billing Surgery - Charge Forward: Surgery Billing (Lateral internal sphincterotomy)
== END 2025-05-26 14:33 | disposition home or self-care (01) ==
PROVIDERS: PCP Emergency Medicine; Visit Provider Surgery
PROC: (CPT 46080; principal; 2025-05-26 13:00)
DX: K60.1 Chronic anal fissure (principal); G89.18 Other acute postprocedural pain; E66.9 Obesity, unspecified; Z68.32 Body mass index [BMI] 32.0-32.9, adult; Z98.890 Other specified postprocedural states; Z90.49 Acquired absence of other specified parts of digestive tract; Z87.891 Personal history of nicotine dependence; Z87.19 Personal history of other diseases of the digestive system
CPT/HCPCS: 46080; J0690; A9270; J1100; J2003; J2250; J2405; J2704; J3010; J7120